=== PATIENT | male | born 1955 | race Caucasian/White ===

== ENCOUNTER → 2016-12-21 | Outpatient (CLI) | payer BC ==
--- NOTE | 2016-12-21 16:57 | CR ---
EXAMINATION: Pelvis and left hip HISTORY: Pain COMPARISON: 12/07/2016 TECHNIQUE: AP pelvis and 2 views of the left hip FINDINGS: There is no acute osseous abnormality, dislocation, or fracture identified. The left hip j oint appears normal. There is increased sclerosis at the left SI joint, the right SI joint appears n ormal. Bone mineralization otherwise appears normal. IMPRESSION: 1. Mild asymmetric left sacroiliitis. 2. Unremarkable left hip.
== END ==
LOC: MW.CHORTHO 07:51
PROVIDERS: ATTEND Orthopaedic Surgery
DX: M25.552 Pain in left hip (principal); M46.1 Sacroiliitis, not elsewhere classified
CPT/HCPCS: 73502-26-LT; 73502-LT

== ENCOUNTER → 2016-12-24 | Outpatient (CLI) | payer BC ==
[~2016-12-24] MED LIST: Iopamidol 755 MG/ML 500 ML Multipack Bottle IVPUSH STA
--- NOTE | 2017-01-12 08:48 | CT ---
EXAMINATION: CT soft tissue neck with and without contrast HISTORY: Lump COMPARISON: 06/14/2010 TECHNIQUE: Axial CT images obtained through the neck before and following the administration of 7 4- mL of Isovue-370 in the left antecubital fossa. Coronal and sagittal reconstructions obtained. FINDINGS: The nasopharyngeal and oropharyngeal mucosal structures are symmetric. The hypopharynx is normal. No bulky cervical lymphadenopathy. The parotid and submandibular glands appear normal. The t hyroid gland appears normal. There is no abnormal mass noted within the region of concern. There is asymmetric prominence of the right jugular brain and sternocleidomastoid within the region of concer n, possibly resulting in the palpable finding. The lung apices are clear. The visualized intracrania l compartments appear normal. Mild degenerative changes are noted within the cervical spine. IMPRESSION: 1. No abnormal mass noted within the region of concern.
== END ==
LOC: MW.DI 10:17
PROVIDERS: ATTEND Surgery
DX: R22.1 Localized swelling, mass and lump, neck (principal)
CPT/HCPCS: 70492; Q9967

== ENCOUNTER → 2017-01-06 | Outpatient (CLI) | payer BC ==
--- NOTE | 2017-01-07 19:16 | US ---
EXAMINATION: Carotid US with bob scale and duplex imaging. HISTORY: TIA FINDINGS: Ultrasound examination of bilateral cervical carotid arteries was performed using bob scale and dup sangeeta imaging. No significant atheromatous plaque identified within the carotid arteries. Antegrade flow is noted within the vertebrals. These are the peak velocities in cm per second (systole), right and left respectively, by a comma: CCA (common carotid artery) - 69, 95 ICA (internal carotid artery) - 64, 52 ECA (External carotid artery) - 82, 70 ICA/CCA systolic ratio Right - 1 Left - 1.1 IMPRESSION: No significant atheromatous plaque identified or elevated velocities noted within the carotid arteri es bilaterally.
--- NOTE | 2017-01-11 19:51 | ECHO ---
The echocardiogram report can be seen in this patient's EMR in the Reports section. UVALDO
== END ==
LOC: MW.US 13:12
PROVIDERS: ATTEND Family Medicine
DX: Z86.73 Personal history of transient ischemic attack (TIA), and cerebral infarction without residual deficits (principal)
CPT/HCPCS: 93306; 93880; 93880-26

== ENCOUNTER 2018-03-23 10:24 | Day surgery (SDC) | payer MEDICARE, BC ==
[~2018-03-23 10:24] MED LIST changes: -Iopamidol 755 MG/ML 500 ML Multipack Bottle IVPUSH STA; +Lactated Ringers 1,000 ML IV SCH; +Lidocaine 2% 5 ML SDV ONE; +Propofol 200 MG/20 ML SDV ONE; +Sodium Chloride 0.9% 10 ML Syringe FLUSH PRN; +Sodium Chloride 0.9% 2.5 ML Syringe FLUSH PRN; +fentaNYL 100 MCG/2 ML SDV ONE
[2018-03-23] MEDS ORDERED: Midazolam 1 MG/ML 2 ML SDV ONE (11:35)
--- NOTE | 2018-03-23 11:47 | PCM.PREANE ---
Preanesthetic Assessment - Anesthesia/Transfusion/Family Hx Anesthesia History: Prior Anesthesia Without Reaction Family History of Anesthesia Reaction: No Transfusion History: No Prior Transfusion(s) Intubation History: Unknown - Review of Systems General: No Symptoms Pulmonary: No Symptoms Cardiovascular: No Symptoms Gastrointestinal: Difficulty Swallowing Neurological: No Symptoms Other: Reports: None - Physical Assessment NPO Status Date: 03/22/18 NPO Status Time: 22:00 O2 Sat by Pulse Oximetry: 96 Respiratory Rate: 18 Vital Signs: Last Vital Signs Temp 36.6 C 03/23/18 11:04 Pulse 81 03/23/18 11:04 Resp 18 03/23/18 11:04 BP 151/89 H 03/23/18 11:04 Pulse Ox 96 03/23/18 11:04 Height: 1.83 m Weight: 143.335 kg ASA Class: 3 Mental Status: Alert & Oriented x3 Airway Class: Mallampati = 3 Dentition: Reports: Normal Dentition, [place](s) (upper front- multiple) Thyro-Mental Finger Breadths: 2 Mouth Opening Finger Breadths: 3 ROM/Head Extension: Full Lungs: Clear to Auscultation, Normal Respiratory Effort Cardiovascular: Regular Rate, Regular Rhythm - Allergies Allergies/Adverse Reactions: Allergies Allergy/AdvReac Type Severity Reaction Status Date / Time No Known Allergies Allergy Verified 03/17/18 12:13 - Blood Blood Available: No - Anesthesia Plan Pre-Op Medication Ordered: None - Acknowledgements Anesthesia Type Planned: MAC Pt an Appropriate Candidate for the Planned Anesthesia: Yes Alternatives and Risks of Anesthesia Discussed w Pt/Guardian: Yes Pt/Guardian Understands and Agrees with Anesthesia Plan: Yes PreAnesthesia Questionnaire HEENT History: Reports: None Cardiovascular History: Reports: High Cholesterol, Hypertension Respiratory History: Reports: Sleep Apnea, SOB (some SOB after walking 2 blocks or 2 flights of stairs) Other Respiratory History: uses CPAP Gastrointestinal History: Reports: GERD Genitourinary History: Reports: None Musculoskeletal History: Reports: Fracture, Osteoarthritis, Other (See Below) ( chronic pain) Other Musculoskeletal History: hx diana ankle fx and fx collarbone Neurological History: Reports: Concussion, Neuropathy, Peripheral, TIA ( multiple "mini stroke" with disorientation, dizziness and droopy face- last one couple of weeks ago) Psychiatric History: Reports: Anxiety, Depression Endocrine/Metabolic History: Reports: Obesity/BMI 30+, Other (See Below) ( abnormal sugar levels) Dermatologic History: Reports: None - Past Surgical History Head Surgeries/Procedures: Reports: None GI Surgical History: Reports: Cholecystectomy, EGD, Hernia, Inguinal Other GI Surgeries/Procedures: dyphagia Musculoskeletal Surgical History: Reports: Shoulder Surgery Other Musculoskeletal Surgeries/Procedures:: ORIF rt ankle fx Dermatological Surgical History: Reports: Skin Biopsy - SUBSTANCE USE Smoking Status *Q: Former Smoker Recreational Drug Use History: No - HOME MEDS Home Medications: Home Meds Acetaminophen with Codeine [Acetaminophen-Cod #3] 1 tab PO ASDIRECTED PRN [History] Aspirin 326 mg PO DAILY 03/17/18 [History] Clopidogrel Bisulfate [Plavix] 75 mg PO DAILY 03/17/18 [History] Cyclobenzaprine HCl 1 tab PO ASDIRECTED PRN 03/17/18 [History] DULoxetine [Cymbalta] 2 tab PO DAILY 03/17/18 [History] Diclofenac Sodium [Voltaren] 75 mg PO BID 03/17/18 [History] Gabapentin [Neurontin] 600 mg PO BID 03/17/18 [History] Lidocaine 5% [Lidoderm 5%] 1 patch TRDERM ASDIRECTED PRN 03/17/18 [History] Lisinopril 20 mg PO DAILY 03/17/18 [History] Omeprazole 20 mg PO DAILY 03/17/18 [History] Sildenafil Citrate [Sildenafil] 3 - 5 tab PO ASDIRECTED PRN 03/17/18 [History] Temazepam 15 mg PO BEDTIME PRN 03/17/18 [History] Terbinafine HCl 250 mg PO DAILY 03/17/18 [History] amLODIPine Besylate [Amlodipine Besylate] 5 mg PO DAILY 03/17/18 [History] atorvaSTATin Calcium [Atorvastatin Calcium] 10 mg PO DAILY 03/17/18 [History] - CURRENT (IN HOUSE) MEDS Current Meds: Current Medications Lactated Ringer's (Ringers, Lactated) 1,000 mls @ 125 mls/hr IV ASDIRECTED LEONEL Last Admin: 03/23/18 10:38 Dose: 125 mls/hr Sodium Chloride (Saline Flush) 10 ml FLUSH ASDIRECTED PRN PRN Reason: Keep Vein Open Sodium Chloride (Saline Flush) 2.5 ml FLUSH ASDIRECTED PRN PRN Reason: Keep Vein Open Sodium Chloride (Saline Flush) 10 ml FLUSH ASDIRECTED PRN PRN Reason: Keep Vein Open Sodium Chloride (Saline Flush) 2.5 ml FLUSH ASDIRECTED PRN PRN Reason: Keep Vein Open Discontinued Medications Fentanyl (Sublimaze) Confirm Administered Dose 100 mcg .ROUTE .STK-MED ONE Stop: 03/23/18 09:30 Lidocaine (Xylocaine-Mpf 2%) Confirm Administered Dose 5 ml .ROUTE .STK-MED ONE Stop: 03/23/18 09:30 Midazolam HCl (Versed 1 Mg/Ml) Confirm Administered Dose 2 mg .ROUTE .STK-MED ONE Stop: 03/23/18 11:36 Propofol (Diprivan 20 Ml) Confirm Administered Dose 400 mg .ROUTE .STK-MED ONE Stop: 03/23/18 09:30
--- NOTE | 2018-03-23 12:39 | PCM.OPNOTE ---
- General Post-Op/Procedure Note Date of Surgery/Procedure: 03/23/18 Operative Procedure(s): Diagnostic EGD and screening colonoscopy Findings: Small hiatal hernia with no narrowing/stricture noted. Diverticulosis Pre Op Diagnosis: Dysphagia Post-Op Diagnosis: Hiatal hernia, diverticulosis Anesthesia Technique: MAC Primary Surgeon: Monica Paris Condition: Good
--- NOTE | 2018-03-23 13:21 | PCM48HPAN ---
Post Anesthesia Note - EVALUATION WITHIN 48HRS OF ANESTHETIC Vital Signs in Normal Range: Yes Patient Participated in Evaluation: Yes Respiratory Function Stable: Yes Airway Patent: Yes Cardiovascular Function Stable: Yes Hydration Status Stable: Yes Pain Control Satisfactory: Yes Nausea and Vomiting Control Satisfactory: Yes Mental Status Recovered: Yes Resp Rate: 11 - COMMENTS/OBSERVATIONS Free Text/Narrative:: no anesthesia problems
[2018-03-23 14:15] VITALS: BP 121/59
--- NOTE | 2018-03-24 00:19 | OR ---
SURGEON: TARA OLIVAS MD DATE OF PROCEDURE: 03/23/2018 PREOPERATIVE DIAGNOSES: 1. Dysphagia. 2. Screening colonoscopy. POSTOPERATIVE DIAGNOSES: 1. Hiatal hernia. 2. Diverticulosis. PROCEDURE PERFORMED: Diagnostic EGD and screening colonoscopy. INSTRUMENT USED: Olympus endoscope and colonoscope. EXTENT OF EXAM: To the second portion of the duodenum and to the cecum. PREPARATION: Good. LIMITATIONS: None. INDICATION FOR EXAMINATION: The patient is a 62-year-old male who presents with progressive dysphagia. He has also never had a colonoscopy. We discussed the need for diagnostic EGD and a screening colonoscopy. The patient had a preoperative esophagram that showed a small hiatal hernia with a small ring. I consented the patient for diagnostic EGD with possible dilation if it appeared that he did have a stricture in the distal esophagus. I also consented him for a screening colonoscopy. We talked about both procedures as well as expected perioperative course. We discussed the risks including bleeding, infection, or damage to surrounding structures including perforation. The patient verbalized understanding and wishes to proceed. PROCEDURE IN DETAIL: The patient was brought into the endoscopy suite and placed in the left lateral decubitus position. A time-out was completed verifying the patient's name, age, date of , allergies, and procedure to be performed. Monitored anesthesia care was induced, and a bite block was placed in the patient's mouth. Continuous oxygen was provided via nasal cannula throughout the procedure. After adequate sedation was achieved, a well-lubricated endoscope was placed in the patient's mouth and advanced under direct visualization to the level of the second portion of duodenum. This appeared normal, and a photograph was taken. The scope was then fully withdrawn while examining the color, texture, anatomy, and integrity of the mucosa of the upper GI tract. The duodenum appeared normal. The scope was then brought into the stomach. The gastric mucosa was free of ulcers or any signs of inflammation. A photograph was taken of the pylorus and GE junction. The patient was noted to have a small hiatal hernia. Biopsies were taken of the gastric antrum, body, and fundus and sent for H. pylori testing and histologic review. The scope was then brought into the distal esophagus. The patient was noted to have a small hiatal hernia, but there was no evidence of stricture. The GE junction was widely patent. Given this, the decision was made to not attempt any dilation. The remainder of the esophageal mucosa appeared normal. The scope was removed, and this portion of procedure was terminated. A digital rectal exam was performed. This exam was within normal limits. A well-lubricated colonoscope was inserted in the rectum and advanced under direct visualization to the level of the cecum. The cecum was identified by both visual and anatomic landmarks. A photograph was taken of the cecal cap. The scope was then fully withdrawn while examining the color, texture, anatomy, and integrity of the mucosa from the cecum to the anal canal. The patient was noted to have diverticulosis. The scope was then brought in the rectum and retroflexed to allow visualization of the anal canal opening. This appeared normal, and a photograph was taken. The scope was then straightened out and fully withdrawn. The cecum to anus time was 9 minutes. The patient tolerated both procedures well and was transferred to the PACU in stable condition. ENDOSCOPIC DIAGNOSES: 1. Hiatal hernia. 2. Diverticulosis. RECOMMENDATIONS: We will refer the patient on to a die out worker for further dysphagia workup. We will see the patient in clinic in 2 weeks to discuss this as well as his diverticulosis diagnosis. LEONARD NORIEGA /[id number]
== END 2018-03-23 13:23 | disposition home or self-care (01) ==
LOC: MW.SDS 10:24
PROVIDERS: ATTEND Surgery
DX: K21.9 Gastro-esophageal reflux disease without esophagitis (principal); K62.5 Hemorrhage of anus and rectum; R13.10 Dysphagia, unspecified; K57.30 Diverticulosis of large intestine without perforation or abscess without bleeding; K44.9 Diaphragmatic hernia without obstruction or gangrene; M19.019 Primary osteoarthritis, unspecified shoulder; J44.9 Chronic obstructive pulmonary disease, unspecified; J30.9 Allergic rhinitis, unspecified; M19.90 Unspecified osteoarthritis, unspecified site; I10 Essential (primary) hypertension; F32.1 Major depressive disorder, single episode, moderate; F41.9 Anxiety disorder, unspecified; E78.5 Hyperlipidemia, unspecified; E78.00 Pure hypercholesterolemia, unspecified; E66.9 Obesity, unspecified; G47.30 Sleep apnea, unspecified; Z99.89 Dependence on other enabling machines and devices; Z79.82 Long term (current) use of aspirin; Z79.899 Other long term (current) drug therapy
CPT/HCPCS: 43239; 45378; J2250; J3010; J7120; 88305; 88312; J2704

== ENCOUNTER 2019-01-04 09:20 | Day surgery (SDC) | payer MEDICARE ==
[2019-01-04] MEDS ORDERED: Betamethasone Acetate/Betamethasone Sod Phosphate 30 MG/5 ML MDV ONE (12:23)
[2019-01-04] MEDS ORDERED: Iopamidol 408 MG/ML 50 ML SDV ONE (12:23)
[2019-01-04] MEDS ORDERED: Ropivacaine 0.5% 5 MG/ML 30 ML SDV ONE (12:23)
[2019-01-04] MEDS ORDERED: Lidocaine 2% 5 ML SDV ONE (12:23)
--- NOTE | 2019-01-04 18:13 | OR ---
SURGEON: Michelle Pope D.O. DATE OF PROCEDURE: 01/04/2019 OR STAFF PRESENT: 1. Alanna Vyas RN. 2. Shola Crenshaw RN. 3. RT [place]. WOUND CLASS: I. PREOPERATIVE DIAGNOSES: 1. Lumbar herniated disk. 2. Lumbar degenerative disk disease, L3-4, L4-5, L5-S1. 3. Lumbar radiculopathy. 4. Lumbar spinal stenosis. 5. Lumbar neural foraminal stenosis. POSTOPERATIVE DIAGNOSES: 1. Lumbar herniated disk. 2. Lumbar degenerative disk disease, L3-4, L4-5, L5-S1. 3. Lumbar radiculopathy. 4. Lumbar spinal stenosis. 5. Lumbar neural foraminal stenosis. PROCEDURES PERFORMED: 1. Caudal epidural steroid injection. 2. Fluoroscopic guidance for needle placement. 3. Local with oral Valium for sedation. SCREENING QUESTIONS: The patient answered "no" to all of the following questions: 1. Are you allergic to latex? 2. Do you have a bleeding disorder? 3. Do you have any current local or systemic infections? 4. Are you taking any anti-inflammatories or blood thinners? 5. Do you have any joint replacements, heart valve replacements, or a pacemaker? DESCRIPTION OF PROCEDURE: The patient had the procedure thoroughly explained including all possible risks, benefits and alternatives. Consent was signed in my clinic indicating understanding and willingness to proceed. The patient presented to [facility] and was escorted to the dressing room to disrobe and change into a hospital gown. Preoperative vital signs were taken and stable. The patient reported that Valium was taken prior to the procedure. The patient was brought back to the procedure room and placed in the prone position on the procedure room table. A pillow was placed under the hips in order to flatten the lumbar lordosis. The back was prepped with ChloraPrep and sterilely draped. All personnel in the operating room were dressed in appropriate attire including surgical scrubs, head and shoe covers. This was to ensure sterility while in the treatment room. During the time fluoroscopy was in use, all personnel in the operating room wore lead dorsey with thyroid collars. Sterile technique was used throughout the procedure. The patient was awake and conversant throughout the procedure. There was no evidence of infection at the site of needle insertion. Skeletal landmarks were identified under fluoroscopy for the caudal epidural. Skin was anesthetized with 2% lidocaine with a sterile 27-gauge 1.5 inch needle. Then, a 20-gauge Tuohy epidural needle was placed in the epidural space with loss of resistance technique under fluoroscopic guidance. No heme, cerebrospinal fluid, or paresthesias were noted. Isovue-200 contrast dye was injected in 0.2 cubic centimeter increments and seen to outline the epidural space in both AP and lateral views. There was no intravascular flow pattern observed under live fluoroscopy. Then, 12 milligrams of Celestone was slowly injected after negative aspiration. The patient tolerated the procedure well. Vital signs were stable during and after the procedure. The staff escorted the patient to the recovery area and the patient was released in stable condition after a brief stay in the recovery room monitored by the nurse. The patient was given both oral and written discharge and follow up instructions with recommendation to follow up given for 2-3 weeks. The patient voiced understanding including understanding of those signs and symptoms that would require emergency care. The patient knows how to contact the office if there are any additional problems or questions in the meantime. PREOPERATIVE PAIN: 8/10. POSTOPERATIVE PAIN: 2/10. FOLLOWUP: Follow up in the pain clinic in 3 weeks. PATRICIA / HARI /[id number] UVALDO
== END 2019-01-04 14:20 | disposition home or self-care (01) ==
LOC: MW.SDS 09:20
PROVIDERS: ATTEND Anesthesiology
DX: M51.16 Intervertebral disc disorders with radiculopathy, lumbar region (principal); M51.17 Intervertebral disc disorders with radiculopathy, lumbosacral region; M48.062 Spinal stenosis, lumbar region with neurogenic claudication; M79.18 Myalgia, other site; I10 Essential (primary) hypertension; E78.5 Hyperlipidemia, unspecified; K21.9 Gastro-esophageal reflux disease without esophagitis; J44.9 Chronic obstructive pulmonary disease, unspecified; M19.012 Primary osteoarthritis, left shoulder; M19.011 Primary osteoarthritis, right shoulder; F32.9 Major depressive disorder, single episode, unspecified; F41.9 Anxiety disorder, unspecified; E66.01 Morbid (severe) obesity due to excess calories; Z68.41 Body mass index [BMI] 40.0-44.9, adult; Z79.82 Long term (current) use of aspirin; Z79.02 Long term (current) use of antithrombotics/antiplatelets; Z79.899 Other long term (current) drug therapy
CPT/HCPCS: 36415; 62323; 85025; 85610; 85730; J0702; J2795; Q9966; J2001

== ENCOUNTER 2019-11-30 14:45 | Observation (INO) | payer MEDICARE ==
[2019-11-30] MEDS ORDERED: Sodium Chloride 0.9% 1,000 ML IV ONE ×3 (14:51→17:44)
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
[2019-11-30 15:39] LABS: BLOOD UREA NITROGEN,BUN 21 mg/dL (7.0-18.0); CHLORIDE,CL 104 mmol/L (98-107); GLUCOSE RANDOM 122 mg/dL (74-106); POTASSIUM,K 4.2 mmol/L (3.5-5.1); SODIUM,NA 139 mmol/L (136-148)
[2019-11-30] MEDS: Sodium Chloride 0.9% 1,000 ML IV SCH ×2 (16:54→19:29)
--- NOTE | 2019-11-30 16:56 | CT ---
Is the descending head CT Technique: Multiple axial sections through the brain were obtained. Intravenous contrast was not utilized. Comparison: No prior intracranial imaging. Findings: Ventricles along with basal cisterns and sulci over the convexities are within normal limits for the patient's age. Mild diminished density is noted within the periventricular white matter. No other abnormal parenchymal densities are seen. No evidence of intracranial hemorrhage. No midline shift or mass-effect is seen. Bone window settings were reviewed which shows minimal areas of mucosal thickening within the ethmoid is maxillary sinuses which are most likely chronic. Mastoid sinuses are clear. No acute calvarial abnormality is seen. Impression: 1. Minimal sinus findings believed to be chronic. 2. Small vessel ischemic demyelination change is present. 3. Nothing acute is appreciated on noncontrast head CT study. Diagnostic code #2 This report was dictated in [place] Standard Time
--- NOTE | 2019-11-30 16:56 | CR ---
Chest: AP view of the chest was obtained. Comparison: Prior chest x-ray of 02/05/14. Heart size is normal. Tortuous thoracic aorta is seen. Lungs show no acute parenchymal change. Bony structures are grossly intact. Impression: 1. Nothing acute is seen on AP chest x-ray. Diagnostic code #1 This report was dictated in [place] Standard Time
--- NOTE | 2019-11-30 17:25 | PCM.HP.2 ---
<Leida Graham - Last Filed: 11/30/19 17:40> H&P History of Present Illness - General Date of Service: 11/30/19 Admit Problem/Dx: Admission Diagnosis/Problem Admission Diagnosis/Problem Syncope - History of Present Illness Initial Comments - Free Text/Narative: The patient is a 64 year old male with past medical hx of HTN, hyperlipidemia, TIA, neuropathy, and chronic back pain. The patient was at his son's school discussing an issue with the principal and park police when he felt dizzy and then passed out. States son eased him down to ground, no head trauma or injury to any other part of the body. Thinks he was out for a few seconds. Denies fever/chills, sinus congestion, sore throat chest pain, shortness of breath, cough, nausea/vomiting, constipation/diarrhea, burning with urination. Took his amlodipine this morning and thinks he may have taken a double dose of his pain medication, Tylenol #3. Has not eaten anything all day, was fasting for PCP lab work. Since doing blood work this AM, has had 2 bottles of water and 2 diet cokes. In the ER, leukocytosis of 16, no anemia, lactate wnl, CMP wnl, trop negative, influenza negative. Blood cultures and UA pending. CXR negative for acute process. CT head negative for acute process. EKG showed NSR without ST changes with HR 80s. Upon arrival BP 81/55, after 2 L bolus and fluids running at 150 cc/hr, currently at 98/63. PCP- Dr. Lorenzo - Related Data Allergies/Adverse Reactions: Allergies Allergy/AdvReac Type Severity Reaction Status Date / Time No Known Allergies Allergy Verified 11/30/19 19:45 Home Medications: Home Meds Acetaminophen with Codeine [Tylenol with Codeine #4 Tablet] 1 each PO .Q4-6H PRN 11/30/19 [History] Baclofen 1 - 2 tab PO TID PRN 11/30/19 [History] Clopidogrel [Plavix] 75 mg PO DAILY 11/30/19 [History] Cyanocobalamin/FA/Pyridoxine [Folbic] 1 tab PO BID 11/30/19 [History] Cyclobenzaprine [Flexeril] 10 mg PO Q8HR PRN 11/30/19 [History] DULoxetine [Cymbalta] 120 mg PO DAILY 11/30/19 [History] Diclofenac Sodium [Voltaren 1% Gel] 1 dose TOP DAILY 11/30/19 [History] Diclofenac Sodium [Voltaren] 75 mg PO BIDPC 11/30/19 [History] Gabapentin [Neurontin] 300 mg PO BID 11/30/19 [History] Gabapentin [Neurontin] 600 mg PO BID 11/30/19 [History] Ketamine Hcl [Ketamine Nasal [place] Compound] 1 spray NASBOTH TID PRN 11/30/19 [ History] Lidocaine 0.5% [Xylocaine-MPF 0.5%] 1 dose TOP TID PRN 11/30/19 [History] Lisinopril [Zestril] 20 mg PO DAILY 11/30/19 [History] Sildenafil [Revatio] 60 - 100 mg PO DAILY 11/30/19 [History] amLODIPine [Norvasc] 10 mg PO DAILY 11/30/19 [History] atorvaSTATin [Lipitor] 10 mg PO BEDTIME 11/30/19 [History] Past Medical History HEENT History: Reports: None Cardiovascular History: Reports: High Cholesterol, Hypertension Respiratory History: Reports: Sleep Apnea, SOB (some SOB after walking 2 blocks or 2 flights of stairs) Other Respiratory History: uses CPAP Gastrointestinal History: Reports: GERD Genitourinary History: Reports: None Musculoskeletal History: Reports: Fracture, Osteoarthritis, Other (See Below) ( chronic pain) Other Musculoskeletal History: hx diana ankle fx and fx collarbone Neurological History: Reports: Concussion, Neuropathy, Peripheral, TIA ( multiple "mini stroke" with disorientation, dizziness and droopy face- last one couple of weeks ago) Psychiatric History: Reports: Anxiety, Depression Endocrine/Metabolic History: Reports: Obesity/BMI 30+, Other (See Below) ( abnormal sugar levels) Hematologic History: Reports: None Immunologic History: Reports: None Oncologic (Cancer) History: Reports: None Dermatologic History: Reports: None - Infectious Disease History Infectious Disease History: Reports: Chicken Pox, Measles, Mumps - Past Surgical History Head Surgeries/Procedures: Reports: None GI Surgical History: Reports: Cholecystectomy, EGD, Hernia, Inguinal Other GI Surgeries/Procedures: dyphagia Musculoskeletal Surgical History: Reports: Shoulder Surgery Other Musculoskeletal Surgeries/Procedures:: ORIF rt ankle fx Dermatological Surgical History: Reports: Skin Biopsy Social & Family History - Family History Family Medical History: Noncontributory - Tobacco Use Smoking Status *Q: Never Smoker Second Hand Smoke Exposure: No - Caffeine Use Caffeine Use: Reports: Soda - Recreational Drug Use Recreational Drug Use: No Recreational Drug Type: Reports: Marijuana/Hashish (medical) H&P Review of Systems - Review of Systems: Review Of Systems: See Below General: Reports: No Symptoms HEENT: Reports: No Symptoms Pulmonary: Reports: No Symptoms Cardiovascular: Reports: Syncope, Blood Pressure Problem. Denies: Chest Pain Gastrointestinal: Reports: No Symptoms Genitourinary: Reports: No Symptoms Musculoskeletal: Reports: Back Pain (chronic) Skin: Reports: No Symptoms Psychiatric: Reports: No Symptoms Neurological: Reports: Dizziness, Syncope. Denies: Headache Hematologic/Lymphatic: Reports: No Symptoms Immunologic: Reports: No Symptoms Exam - Exam Exam: See Below - Vital Signs Vital Signs: Last Vital Signs Temp 96.0 F 11/30/19 14:52 Pulse 68 11/30/19 16:45 Resp 17 11/30/19 16:45 BP 98/63 11/30/19 16:45 Pulse Ox 97 11/30/19 16:45 Weight: 120.202 kg - Exam General: Alert, Oriented, Cooperative HEENT: Conjunctiva Clear, EOMI, Mucosa Moist & [place], Posterior Pharynx Clear, Pupils Equal, Pupils Reactive Neck: Supple Lungs: Clear to Auscultation, Normal Respiratory Effort Cardiovascular: Regular Rate, Regular Rhythm GI/Abdominal Exam: Normal Bowel Sounds, Soft, Tender (LLQ) Extremities: Pedal Edema Skin: Warm, Dry, Intact Neuro Extensive - Mental Status: Alert, Oriented x3 Psychiatric: Alert, Normal Affect, Normal Mood - Patient Data Lab Results Last 24 hrs: Laboratory Results - last 24 hr 11/30/19 11/30/19 11/30/19 Range/Units 15:03 15:03 15:03 WBC 16.07 H (4.0-11.0) K/uL RBC 5.29 (4.50-5.90) M/uL Hgb 15.7 (13.0-17.0) g/dL Hct 46.7 (38.0-50.0) % MCV 88.3 (80.0-98.0) fL MCH 29.7 (27.0-32.0) pg MCHC 33.6 (31.0-37.0) g/dL RDW Std Deviation 45.0 (28.0-62.0) fl RDW Coeff of Rober 14 (11.0-15.0) % Plt Count 270 (150-400) K/uL MPV 12.50 H (7.40-12.00) fL Neut % (Auto) 77.4 (48.0-80.0) % Lymph % (Auto) 13.3 L (16.0-40.0) % Fisher % (Auto) 6.7 (0.0-15.0) % Eos % (Auto) 2.4 (0.0-7.0) % Baso % (Auto) 0.2 (0.0-1.5) % Neut # (Auto) 12.5 H (1.4-5.7) K/uL Lymph # (Auto) 2.1 (0.6-2.4) K/uL Fisher # (Auto) 1.1 H (0.0-0.8) K/uL Eos # (Auto) 0.4 (0.0-0.7) K/uL Baso # (Auto) 0.0 (0.0-0.1) K/uL Nucleated RBC % 0.0 /100WBC Nucleated RBCs # 0 K/uL INR 0.98 Lactate (0.20-2.00) mmol/L Sodium 139 (136-148) mmol/L Potassium 4.2 (3.5-5.1) mmol/L Chloride 104 (98-107) mmol/L Carbon Dioxide 24.0 (21.0-32.0) mmol/L BUN 21 H (7.0-18.0) mg/dL Creatinine 1.2 (0.8-1.3) mg/dL Est Cr Clr Drug Dosing 68.26 mL/min Estimated GFR (MDRD) > 60.0 ml/min Glucose 122 H (74-106) mg/dL Calcium 8.6 (8.5-10.1) mg/dL Total Bilirubin 0.7 (0.2-1.0) mg/dL AST 31 (15-37) IU/L ALT 32 (14-63) IU/L Alkaline Phosphatase 92 (46-116) U/L Troponin I < 0.050 (0.000-0.056) ng/mL Total Protein 6.5 (6.4-8.2) g/dL Albumin 3.7 (3.4-5.0) g/dL Globulin 2.8 (2.6-4.0) g/dL Albumin/Globulin Ratio 1.3 (0.9-1.6) 11/30/19 Range/Units 15:03 WBC (4.0-11.0) K/uL RBC (4.50-5.90) M/uL Hgb (13.0-17.0) g/dL Hct (38.0-50.0) % MCV (80.0-98.0) fL MCH (27.0-32.0) pg MCHC (31.0-37.0) g/dL RDW Std Deviation (28.0-62.0) fl RDW Coeff of Rober (11.0-15.0) % Plt Count (150-400) K/uL MPV (7.40-12.00) fL Neut % (Auto) (48.0-80.0) % Lymph % (Auto) (16.0-40.0) % Fisher % (Auto) (0.0-15.0) % Eos % (Auto) (0.0-7.0) % Baso % (Auto) (0.0-1.5) % Neut # (Auto) (1.4-5.7) K/uL Lymph # (Auto) (0.6-2.4) K/uL Fisher # (Auto) (0.0-0.8) K/uL Eos # (Auto) (0.0-0.7) K/uL Baso # (Auto) (0.0-0.1) K/uL Nucleated RBC % /100WBC Nucleated RBCs # K/uL INR Lactate 1.6 (0.20-2.00) mmol/L Sodium (136-148) mmol/L Potassium (3.5-5.1) mmol/L Chloride (98-107) mmol/L Carbon Dioxide (21.0-32.0) mmol/L BUN (7.0-18.0) mg/dL Creatinine (0.8-1.3) mg/dL Est Cr Clr Drug Dosing mL/min Estimated GFR (MDRD) ml/min Glucose (74-106) mg/dL Calcium (8.5-10.1) mg/dL Total Bilirubin (0.2-1.0) mg/dL AST (15-37) IU/L ALT (14-63) IU/L Alkaline Phosphatase (46-116) U/L Troponin I (0.000-0.056) ng/mL Total Protein (6.4-8.2) g/dL Albumin (3.4-5.0) g/dL Globulin (2.6-4.0) g/dL Albumin/Globulin Ratio (0.9-1.6) Result Diagrams: 11/30/19 15:03 11/30/19 15:03 Jamin Results Last 24 hrs: Microbiology 11/30/19 15:12 Influenza Type A Antigen Screen - Final Nasopharyngeal Swab NEGATIVE INFLUENZA A VIRUS AG REFERENCE RANGE: NEGATIVE Influenza Type B Antigen Screen - Final NEGATIVE INFLUENZA B VIRUS AG REFERENCE RANGE: NEGATIVE Sepsis Event Note - Evaluation Sepsis Screening Result: No Definite Risk - Focused Exam Vital Signs: Vital Signs Temp Pulse Resp BP Pulse Ox 11/30/19 16:45 68 17 98/63 97 11/30/19 16:30 82 17 94/67 96 11/30/19 16:15 70 18 116/68 96 11/30/19 16:00 66 18 110/63 98 11/30/19 15:45 67 16 97/59 L 98 11/30/19 15:30 69 17 103/65 98 11/30/19 15:15 73 18 104/63 97 11/30/19 15:00 72 18 90/60 98 11/30/19 14:52 96.0 F 78 16 81/55 L 100 Date Exam was Performed: 11/30/19 Time Exam was Performed: 17:40 Problem List Initiated/Reviewed/Updated: Yes Orders Last 24hrs: Active Orders 24 hr Category Date Time Status Admission Status [Patient Status] [ADT] Stat ADT 11/30/19 17:04 Active EKG Documentation Completion [RC] STAT Care 11/30/19 14:52 Active CULTURE BLOOD [BC] Stat Lab 11/30/19 15:10 Received CULTURE BLOOD [BC] Stat Lab 11/30/19 15:22 Received UA RFX JAMIN AND CULT IF INDIC [URIN] Stat Lab 11/30/19 14:51 Ordered Sodium Chloride 0.9% [Normal Saline] 1,000 ml Med 11/30/19 17:00 Active IV ASDIRECTED Blood Culture x2 Reflex Set [OM.PC] Stat Oth 11/30/19 14:52 Ordered Medication Orders Sodium Chloride (Normal Saline) 1,000 mls @ 150 mls/hr IV ASDIRECTED LEONEL Last Admin: 11/30/19 16:54 Dose: 150 mls/hr Assessment/Plan Comment:: 1. Admit for observation 2. Code status- Full 3. Vitals per routine 4. I/Os strict 5. Diet-regular 6. DVT with lovenox 7. Syncope likely secondary to hypotension- will monitor on telemetry, obtain orthostatic vitals, continue IVF with 1 additional bolus, hold BP meds, obtain UDS, will trend trop 8. Leukocytosis- UA and BC pending, patient has abdominal pain on exam- will obtain CT ab/pelvis <Jacques Luna - Last Filed: 12/01/19 14:09> H&P History of Present Illness - General Admit Problem/Dx: Admission Diagnosis/Problem Admission Diagnosis/Problem Syncope Exam - Vital Signs Vital Signs: Last Vital Signs Temp 36.9 C 12/01/19 12:00 Pulse 70 11/30/19 18:00 Resp 12 12/01/19 09:00 BP 131/75 12/01/19 12:00 Pulse Ox 95 12/01/19 09:00 Orthostatic Blood Pressure [ 131/71 Standing] Orthostatic Blood Pressure [ 140/94 Sitting] Orthostatic Blood Pressure [ 132/74 Supine] - Patient Data Lab Results Last 24 hrs: Laboratory Results - last 24 hr 11/30/19 11/30/19 11/30/19 Range/Units 15:03 15:03 15:03 WBC 16.07 H (4.0-11.0) K/uL RBC 5.29 (4.50-5.90) M/uL Hgb 15.7 (13.0-17.0) g/dL Hct 46.7 (38.0-50.0) % MCV 88.3 (80.0-98.0) fL MCH 29.7 (27.0-32.0) pg MCHC 33.6 (31.0-37.0) g/dL RDW Std Deviation 45.0 (28.0-62.0) fl RDW Coeff of Rober 14 (11.0-15.0) % Plt Count 270 (150-400) K/uL MPV 12.50 H (7.40-12.00) fL Neut % (Auto) 77.4 (48.0-80.0) % Lymph % (Auto) 13.3 L (16.0-40.0) % Fisher % (Auto) 6.7 (0.0-15.0) % Eos % (Auto) 2.4 (0.0-7.0) % Baso % (Auto) 0.2 (0.0-1.5) % Neut # (Auto) 12.5 H (1.4-5.7) K/uL Lymph # (Auto) 2.1 (0.6-2.4) K/uL Fisher # (Auto) 1.1 H (0.0-0.8) K/uL Eos # (Auto) 0.4 (0.0-0.7) K/uL Baso # (Auto) 0.0 (0.0-0.1) K/uL Nucleated RBC % 0.0 /100WBC Nucleated RBCs # 0 K/uL INR 0.98 Lactate (0.20-2.00) mmol/L Sodium 139 (136-148) mmol/L Potassium 4.2 (3.5-5.1) mmol/L Chloride 104 (98-107) mmol/L Carbon Dioxide 24.0 (21.0-32.0) mmol/L BUN 21 H (7.0-18.0) mg/dL Creatinine 1.2 (0.8-1.3) mg/dL Est Cr Clr Drug Dosing 68.26 mL/min Estimated GFR (MDRD) > 60.0 ml/min Glucose 122 H (74-106) mg/dL Calcium 8.6 (8.5-10.1) mg/dL Phosphorus (2.6-4.7) mg/dL Magnesium (1.8-2.4) mg/dL Total Bilirubin 0.7 (0.2-1.0) mg/dL AST 31 (15-37) IU/L ALT 32 (14-63) IU/L Alkaline Phosphatase 92 (46-116) U/L Troponin I < 0.050 (0.000-0.056) ng/mL Total Protein 6.5 (6.4-8.2) g/dL Albumin 3.7 (3.4-5.0) g/dL Globulin 2.8 (2.6-4.0) g/dL Albumin/Globulin Ratio 1.3 (0.9-1.6) Urine Color Urine Appearance Urine pH (5.0-8.0) Ur Specific [place] (1.001-1.035) Urine Protein (NEGATIVE) mg/dL Urine Glucose (UA) (NEGATIVE) mg/dL Urine Ketones (NEGATIVE) mg/dL Urine Occult Blood (NEGATIVE) Urine Nitrite (NEGATIVE) Urine Bilirubin (NEGATIVE) Urine Urobilinogen (<2.0) EU/dL Ur Leukocyte Esterase (NEGATIVE) Urine Opiates Screen (NEGATIVE) Ur Oxycodone Screen (NEGATIVE) Urine Methadone Screen (NEGATIVE) Ur Barbiturates Screen (NEGATIVE) Ur Phencyclidine Scrn (NEGATIVE) Ur Amphetamine Screen (NEGATIVE) U Methamphetamines Scrn (NEGATIVE) U Benzodiazepines Scrn (NEGATIVE) U Cocaine Metab Screen (NEGATIVE) U Marijuana (THC) Screen (NEGATIVE) 11/30/19 11/30/19 11/30/19 Range/Units 15:03 21:00 21:00 WBC (4.0-11.0) K/uL RBC (4.50-5.90) M/uL Hgb (13.0-17.0) g/dL Hct (38.0-50.0) % MCV (80.0-98.0) fL MCH (27.0-32.0) pg MCHC (31.0-37.0) g/dL RDW Std Deviation (28.0-62.0) fl RDW Coeff of Rober (11.0-15.0) % Plt Count (150-400) K/uL MPV (7.40-12.00) fL Neut % (Auto) (48.0-80.0) % Lymph % (Auto) (16.0-40.0) % Fisher % (Auto) (0.0-15.0) % Eos % (Auto) (0.0-7.0) % Baso % (Auto) (0.0-1.5) % Neut # (Auto) (1.4-5.7) K/uL Lymph # (Auto) (0.6-2.4) K/uL Fisher # (Auto) (0.0-0.8) K/uL Eos # (Auto) (0.0-0.7) K/uL Baso # (Auto) (0.0-0.1) K/uL Nucleated RBC % /100WBC Nucleated RBCs # K/uL INR Lactate 1.6 (0.20-2.00) mmol/L Sodium (136-148) mmol/L Potassium (3.5-5.1) mmol/L Chloride (98-107) mmol/L Carbon Dioxide (21.0-32.0) mmol/L BUN (7.0-18.0) mg/dL Creatinine (0.8-1.3) mg/dL Est Cr Clr Drug Dosing mL/min Estimated GFR (MDRD) ml/min Glucose (74-106) mg/dL Calcium (8.5-10.1) mg/dL Phosphorus (2.6-4.7) mg/dL Magnesium (1.8-2.4) mg/dL Total Bilirubin (0.2-1.0) mg/dL AST (15-37) IU/L ALT (14-63) IU/L Alkaline Phosphatase (46-116) U/L Troponin I (0.000-0.056) ng/mL Total Protein (6.4-8.2) g/dL Albumin (3.4-5.0) g/dL Globulin (2.6-4.0) g/dL Albumin/Globulin Ratio (0.9-1.6) Urine Color YELLOW Urine Appearance CLEAR Urine pH 6.0 (5.0-8.0) Ur Specific [place] 1.010 (1.001-1.035) Urine Protein NEGATIVE (NEGATIVE) mg/dL Urine Glucose (UA) NEGATIVE (NEGATIVE) mg/dL Urine Ketones NEGATIVE (NEGATIVE) mg/dL Urine Occult Blood NEGATIVE (NEGATIVE) Urine Nitrite NEGATIVE (NEGATIVE) Urine Bilirubin NEGATIVE (NEGATIVE) Urine Urobilinogen 0.2 (<2.0) EU/dL Ur Leukocyte Esterase NEGATIVE (NEGATIVE) Urine Opiates Screen POSITIVE (NEGATIVE) Ur Oxycodone Screen POSITIVE (NEGATIVE) Urine Methadone Screen NEGATIVE (NEGATIVE) Ur Barbiturates Screen NEGATIVE (NEGATIVE) Ur Phencyclidine Scrn NEGATIVE (NEGATIVE) Ur Amphetamine Screen NEGATIVE (NEGATIVE) U Methamphetamines Scrn NEGATIVE (NEGATIVE) U Benzodiazepines Scrn NEGATIVE (NEGATIVE) U Cocaine Metab Screen NEGATIVE (NEGATIVE) U Marijuana (THC) Screen POSITIVE (NEGATIVE) 11/30/19 12/01/19 12/01/19 Range/Units 21:05 10:03 10:03 WBC 7.67 (4.0-11.0) K/uL RBC 4.21 L (4.50-5.90) M/uL Hgb 12.6 L (13.0-17.0) g/dL Hct 37.6 L (38.0-50.0) % MCV 89.3 (80.0-98.0) fL MCH 29.9 (27.0-32.0) pg MCHC 33.5 (31.0-37.0) g/dL RDW Std Deviation 45.9 (28.0-62.0) fl RDW Coeff of Rober 14 (11.0-15.0) % Plt Count 204 (150-400) K/uL MPV 11.50 (7.40-12.00) fL Neut % (Auto) 71.3 (48.0-80.0) % Lymph % (Auto) 16.2 (16.0-40.0) % Fisher % (Auto) 6.1 (0.0-15.0) % Eos % (Auto) 6.3 (0.0-7.0) % Baso % (Auto) 0.1 (0.0-1.5) % Neut # (Auto) 5.5 (1.4-5.7) K/uL Lymph # (Auto) 1.2 (0.6-2.4) K/uL Fisher # (Auto) 0.5 (0.0-0.8) K/uL Eos # (Auto) 0.5 (0.0-0.7) K/uL Baso # (Auto) 0.0 (0.0-0.1) K/uL Nucleated RBC % 0.0 /100WBC Nucleated RBCs # 0 K/uL INR Lactate (0.20-2.00) mmol/L Sodium 140 (136-148) mmol/L Potassium 4.1 (3.5-5.1) mmol/L Chloride 108 H (98-107) mmol/L Carbon Dioxide 25.0 (21.0-32.0) mmol/L BUN 13 (7.0-18.0) mg/dL Creatinine 0.7 L (0.8-1.3) mg/dL Est Cr Clr Drug Dosing 117.02 mL/min Estimated GFR (MDRD) > 60.0 ml/min Glucose 103 (74-106) mg/dL Calcium 7.9 L (8.5-10.1) mg/dL Phosphorus 3.5 (2.6-4.7) mg/dL Magnesium 2.0 (1.8-2.4) mg/dL Total Bilirubin (0.2-1.0) mg/dL AST (15-37) IU/L ALT (14-63) IU/L Alkaline Phosphatase (46-116) U/L Troponin I < 0.050 (0.000-0.056) ng/mL Total Protein (6.4-8.2) g/dL Albumin (3.4-5.0) g/dL Globulin (2.6-4.0) g/dL Albumin/Globulin Ratio (0.9-1.6) Urine Color Urine Appearance Urine pH (5.0-8.0) Ur Specific [place] (1.001-1.035) Urine Protein (NEGATIVE) mg/dL Urine Glucose (UA) (NEGATIVE) mg/dL Urine Ketones (NEGATIVE) mg/dL Urine Occult Blood (NEGATIVE) Urine Nitrite (NEGATIVE) Urine Bilirubin (NEGATIVE) Urine Urobilinogen (<2.0) EU/dL Ur Leukocyte Esterase (NEGATIVE) Urine Opiates Screen (NEGATIVE) Ur Oxycodone Screen (NEGATIVE) Urine Methadone Screen (NEGATIVE) Ur Barbiturates Screen (NEGATIVE) Ur Phencyclidine Scrn (NEGATIVE) Ur Amphetamine Screen (NEGATIVE) U Methamphetamines Scrn (NEGATIVE) U Benzodiazepines Scrn (NEGATIVE) U Cocaine Metab Screen (NEGATIVE) U Marijuana (THC) Screen (NEGATIVE) Result Diagrams: 12/01/19 10:03 12/01/19 10:03 Jamin Results Last 24 hrs: Microbiology 11/30/19 15:12 Influenza Type A Antigen Screen - Final Nasopharyngeal Swab NEGATIVE INFLUENZA A VIRUS AG REFERENCE RANGE: NEGATIVE Influenza Type B Antigen Screen - Final NEGATIVE INFLUENZA B VIRUS AG REFERENCE RANGE: NEGATIVE Sepsis Event Note - Focused Exam Vital Signs: Vital Signs Temp Resp BP Pulse Ox 12/01/19 12:00 36.9 C 131/75 12/01/19 09:00 12 114/65 95 12/01/19 08:00 12 102/51 L 98 12/01/19 07:00 12 118/72 96 12/01/19 04:00 36.8 C 14 122/65 93 L 12/01/19 03:00 13 119/71 97 Date Exam was Performed: 12/01/19 Time Exam was Performed: 14:08 - Problem List (1) Enteritis SNOMED Code(s): 69460980 ICD Code: K52.9 - NONINFECTIVE GASTROENTERITIS AND COLITIS, UNSPECIFIED Status: Acute Current Visit: Yes (2) Hypotension SNOMED Code(s): 12219672 ICD Code: I95.9 - HYPOTENSION, UNSPECIFIED Status: Acute Current Visit: Yes (3) Syncope SNOMED Code(s): 169830244 ICD Code: R55 - SYNCOPE AND COLLAPSE Status: Acute Current Visit: Yes (4) Diverticulosis SNOMED Code(s): 95969064 ICD Code: K57.90 - DVRTCLOS OF INTEST, PART UNSP, W/O PERF OR ABSCESS W/O BLEED Status: Acute Current Visit: No Orders Last 24hrs: Active Orders 24 hr Category Date Time Status Admission Status [Patient Status] [ADT] Stat ADT 11/30/19 17:04 Active Transfer Patient (Change bed) [ADT] Routine ADT 12/01/19 10:30 Ordered Cardiac Monitoring [RC] Q8H Care 11/30/19 17:41 Active EKG Documentation Completion [RC] STAT Care 11/30/19 14:52 Active Intake and Output Strict [RC] Q12H Care 11/30/19 17:41 Active Orthostatic Vital Signs [RC] ASDIRECTED Care 11/30/19 17:41 Active Vital Signs [RC] Q4H Care 11/30/19 17:41 Active Regular Diet [DIET] Diet 12/01/19 Breakfast Active CULTURE BLOOD [BC] Stat Lab 11/30/19 15:10 Received CULTURE BLOOD [BC] Stat Lab 11/30/19 15:22 Received Acetaminophen [Tylenol] Med 11/30/19 17:44 Active 650 mg PO Q4H PRN Ciprofloxacin in D5W [Cipro in D5W 400 MG/200 ML] 400 Med 12/01/19 11:00 Active mg Premix Bag 1 bag IV Q12H Enoxaparin [Lovenox] Med 12/01/19 14:15 Ordered 40 mg SUBCUT Q24H Ondansetron [Zofran] Med 11/30/19 17:44 Active 4 mg IVPUSH Q4H PRN Sodium Chloride 0.9% [Normal Saline] 1,000 ml Med 11/30/19 17:00 Active IV ASDIRECTED metroNIDAZOLE/Normal Saline [Flagyl 500 MG in NS 100 ML Med 12/01/19 02:00 Active ] 500 mg Premix Bag 1 bag IV QID Blood Culture x2 Reflex Set [OM.PC] Stat Oth 11/30/19 14:52 Ordered Resuscitation Status Stat Resus Stat 11/30/19 17:41 Ordered Medication Orders Acetaminophen (Tylenol) 650 mg PO Q4H PRN PRN Reason: Pain/Fever Last Admin: 12/01/19 12:04 Dose: 650 mg Admin: 12/01/19 05:48 Dose: 650 mg Admin: 11/30/19 20:48 Dose: 650 mg Enoxaparin Sodium (Lovenox) 40 mg SUBCUT Q24H [facility] Sodium Chloride (Normal Saline) 1,000 mls @ 150 mls/hr IV ASDIRECTED LEONEL Last Admin: 12/01/19 00:57 Dose: 150 mls/hr Infusion: 12/01/19 00:57 Dose: 150 mls/hr Admin: 11/30/19 19:29 Dose: 150 mls/hr Infusion: 11/30/19 19:29 Dose: 150 mls/hr Admin: 11/30/19 16:54 Dose: 150 mls/hr Metronidazole 500 mg/ Premix 100 mls @ 100 mls/hr IV QID [facility] Last Admin: 12/01/19 12:22 Dose: 100 mls/hr Infusion: 12/01/19 06:47 Dose: 100 mls/hr Admin: 12/01/19 05:47 Dose: 100 mls/hr Infusion: 12/01/19 02:59 Dose: 100 mls/hr Admin: 12/01/19 01:59 Dose: 100 mls/hr Ciprofloxacin/Dextrose 400 mg/ (Premix) 200 mls @ 200 mls/hr IV Q12H [facility] Last Admin: 12/01/19 10:53 Dose: 200 mls/hr Ondansetron HCl (Zofran) 4 mg IVPUSH Q4H PRN PRN Reason: Nausea/Vomiting Assessment/Plan Comment:: I performed a history and physical exam of the patient and discussed management with resident. I have reviewed the residents note and agree with documented findings and plan unless otherwise specified in my note.
[2019-11-30] MEDS ORDERED: Ondansetron 4 MG/2 ML SDV IVPUSH PRN (17:44)
[2019-11-30 18:31] VITALS: PULSE 70
[2019-11-30] MEDS ORDERED: Iopamidol 755 MG/ML 500 ML Multipack Bottle IVPUSH ONE (20:33)
[2019-11-30] MEDS: Acetaminophen 325 MG Tab PO PRN (20:48)
--- NOTE | 2019-11-30 20:57 | CT ---
CT abdomen and pelvis Technique: Multiple axial sections were obtained from above the dome of the diaphragm inferiorly through the pubic symphysis. Intravenous contrast was utilized. No oral contrast has been given. Comparison: No prior abdominal imaging. Findings: Small amount of ascites is noted around the liver and around the spleen. Cyst is noted within the left kidney measuring 4.1 cm. No ureteral dilatation or ureteral stone is seen. Right kidney appears within normal limits. Adrenal glands show no nodule. Pancreas appears normal. There is inflammatory type change within the mesentery around small bowel loops. There is some questionable bowel wall thickening within small bowel loops raising the possibility of enteritis. Diverticuli are seen within the descending and sigmoid colon with no surrounding inflammatory change seen to indicate diverticulitis. Appendix is felt to be visualized and is normal. No pelvic mass or adenopathy is seen. Bone window settings shows scattered degenerative endplate spurring throughout the spine. Degenerative change is noted within both sacroiliac joints. No acute osseous finding is seen. Impression: 1. Small amount of ascites around the liver and spleen. 2. Inflammatory change around several small bowel loops with possible small bowel wall thickening suggesting enteritis. 3. Diverticuli within the sigmoid and descending colon without findings of diverticulitis. 4. Other nonacute findings as noted above. Diagnostic code #3 This report was dictated in [place] [employer] Time
[2019-11-30] MEDS ORDERED: Ciprofloxacin in D5W 400 MG in Premix Bag 1 BAG IV SCH ×2 (22:00)
[2019-11-30] MEDS ORDERED: Ketorolac 30 MG/ML SDV IVPUSH ONE (23:44)
[2019-12-01] MEDS ORDERED: metroNIDAZOLE/Normal Saline 500 MG in Premix Bag 1 BAG IV SCH ×2
[2019-12-01] MEDS ORDERED: Ciprofloxacin in D5W 400 MG in Premix Bag 1 BAG IV SCH ×2
[2019-12-01] MEDS: Sodium Chloride 0.9% 1,000 ML IV SCH (00:57)
[2019-12-01] MEDS: metroNIDAZOLE/Normal Saline 500 MG in Premix Bag 1 BAG IV SCH ×4 (01:59→17:57)
[2019-12-01] MEDS: Acetaminophen 325 MG Tab PO PRN ×2 (05:48→12:04)
[2019-12-01 10:31] LABS: BLOOD UREA NITROGEN,BUN 13 mg/dL (7.0-18.0); CHLORIDE,CL 108 mmol/L (98-107); GLUCOSE RANDOM 103 mg/dL (74-106); POTASSIUM,K 4.1 mmol/L (3.5-5.1); SODIUM,NA 140 mmol/L (136-148)
[2019-12-01] MEDS: Ciprofloxacin in D5W 400 MG in Premix Bag 1 BAG IV SCH ×4 (10:53→23:02)
[2019-12-01] MEDS ORDERED: Ketorolac 30 MG/ML SDV IM ONE (11:57)
[2019-12-01] MEDS ORDERED: Ketorolac 30 MG/ML SDV IVPUSH ONE ×2 (12:25→19:23)
--- NOTE | 2019-12-01 12:32 | PCM.PN ---
- General Info Date of Service: 12/01/19 Admission Dx/Problem (Free Text): Admission Diagnosis/Problem Admission Diagnosis/Problem Syncope Subjective Update: seen and examined at bedside, no acute distress, abdominal tenderness improved able to tolerate diet, c/o chronic back pain, - Review of Systems General: Reports: Weakness. Denies: Fever, Fatigue, Malaise HEENT: Denies: Dysphasia Pulmonary: Denies: Shortness of Breath, Pleuritic Chest Pain Cardiovascular: Denies: Chest Pain, Palpitations Gastrointestinal: Denies: Abdominal Pain, Constipation, Decreased Appetite, Diarrhea, Vomiting Genitourinary: Denies: Dysuria, Frequency Musculoskeletal: Reports: Back Pain, Leg Pain Skin: Denies: Cyanosis, Jaundice Neurological: Denies: Confusion, Dizziness, Headache - Patient Data Vitals - Most Recent: Last Vital Signs Temp 36.8 C 12/01/19 04:00 Pulse 70 11/30/19 18:00 Resp 12 12/01/19 09:00 BP 114/65 12/01/19 09:00 Pulse Ox 95 12/01/19 09:00 Orthostatic Blood Pressure [ 131/71 Standing] Orthostatic Blood Pressure [ 140/94 Sitting] Orthostatic Blood Pressure [ 132/74 Supine] Weight - Most Recent: 126.8 kg I&O - Last 24 Hours: Intake & Output 11/30/19 12/01/19 12/01/19 22:59 06:59 14:59 Intake Total 5440 Output Total 980 Balance 4460 Lab Results Last 24 Hours: Laboratory Results - last 24 hr 11/30/19 11/30/19 11/30/19 Range/Units 15:03 15:03 15:03 WBC 16.07 H (4.0-11.0) K/uL RBC 5.29 (4.50-5.90) M/uL Hgb 15.7 (13.0-17.0) g/dL Hct 46.7 (38.0-50.0) % MCV 88.3 (80.0-98.0) fL MCH 29.7 (27.0-32.0) pg MCHC 33.6 (31.0-37.0) g/dL RDW Std Deviation 45.0 (28.0-62.0) fl RDW Coeff of Rober 14 (11.0-15.0) % Plt Count 270 (150-400) K/uL MPV 12.50 H (7.40-12.00) fL Neut % (Auto) 77.4 (48.0-80.0) % Lymph % (Auto) 13.3 L (16.0-40.0) % [place] % (Auto) 6.7 (0.0-15.0) % Eos % (Auto) 2.4 (0.0-7.0) % Baso % (Auto) 0.2 (0.0-1.5) % Neut # (Auto) 12.5 H (1.4-5.7) K/uL Lymph # (Auto) 2.1 (0.6-2.4) K/uL [place] # (Auto) 1.1 H (0.0-0.8) K/uL Eos # (Auto) 0.4 (0.0-0.7) K/uL Baso # (Auto) 0.0 (0.0-0.1) K/uL Nucleated RBC % 0.0 /100WBC Nucleated RBCs # 0 K/uL INR 0.98 Lactate (0.20-2.00) mmol/L Sodium 139 (136-148) mmol/L Potassium 4.2 (3.5-5.1) mmol/L Chloride 104 (98-107) mmol/L Carbon Dioxide 24.0 (21.0-32.0) mmol/L BUN 21 H (7.0-18.0) mg/dL Creatinine 1.2 (0.8-1.3) mg/dL Est Cr Clr Drug Dosing 68.26 mL/min Estimated GFR (MDRD) > 60.0 ml/min Glucose 122 H (74-106) mg/dL Calcium 8.6 (8.5-10.1) mg/dL Phosphorus (2.6-4.7) mg/dL Magnesium (1.8-2.4) mg/dL Total Bilirubin 0.7 (0.2-1.0) mg/dL AST 31 (15-37) IU/L ALT 32 (14-63) IU/L Alkaline Phosphatase 92 (46-116) U/L Troponin I < 0.050 (0.000-0.056) ng/mL Total Protein 6.5 (6.4-8.2) g/dL Albumin 3.7 (3.4-5.0) g/dL Globulin 2.8 (2.6-4.0) g/dL Albumin/Globulin Ratio 1.3 (0.9-1.6) Urine Color Urine Appearance Urine pH (5.0-8.0) Ur Specific [place] (1.001-1.035) Urine Protein (NEGATIVE) mg/dL Urine Glucose (UA) (NEGATIVE) mg/dL Urine Ketones (NEGATIVE) mg/dL Urine Occult Blood (NEGATIVE) Urine Nitrite (NEGATIVE) Urine Bilirubin (NEGATIVE) Urine Urobilinogen (<2.0) EU/dL Ur Leukocyte Esterase (NEGATIVE) Urine Opiates Screen (NEGATIVE) Ur Oxycodone Screen (NEGATIVE) Urine Methadone Screen (NEGATIVE) Ur Barbiturates Screen (NEGATIVE) Ur Phencyclidine Scrn (NEGATIVE) Ur Amphetamine Screen (NEGATIVE) U Methamphetamines Scrn (NEGATIVE) U Benzodiazepines Scrn (NEGATIVE) U Cocaine Metab Screen (NEGATIVE) U Marijuana (THC) Screen (NEGATIVE) 11/30/19 11/30/19 11/30/19 Range/Units 15:03 21:00 21:00 WBC (4.0-11.0) K/uL RBC (4.50-5.90) M/uL Hgb (13.0-17.0) g/dL Hct (38.0-50.0) % MCV (80.0-98.0) fL MCH (27.0-32.0) pg MCHC (31.0-37.0) g/dL RDW Std Deviation (28.0-62.0) fl RDW Coeff of Rober (11.0-15.0) % Plt Count (150-400) K/uL MPV (7.40-12.00) fL Neut % (Auto) (48.0-80.0) % Lymph % (Auto) (16.0-40.0) % [place] % (Auto) (0.0-15.0) % Eos % (Auto) (0.0-7.0) % Baso % (Auto) (0.0-1.5) % Neut # (Auto) (1.4-5.7) K/uL Lymph # (Auto) (0.6-2.4) K/uL [place] # (Auto) (0.0-0.8) K/uL Eos # (Auto) (0.0-0.7) K/uL Baso # (Auto) (0.0-0.1) K/uL Nucleated RBC % /100WBC Nucleated RBCs # K/uL INR Lactate 1.6 (0.20-2.00) mmol/L Sodium (136-148) mmol/L Potassium (3.5-5.1) mmol/L Chloride (98-107) mmol/L Carbon Dioxide (21.0-32.0) mmol/L BUN (7.0-18.0) mg/dL Creatinine (0.8-1.3) mg/dL Est Cr Clr Drug Dosing mL/min Estimated GFR (MDRD) ml/min Glucose (74-106) mg/dL Calcium (8.5-10.1) mg/dL Phosphorus (2.6-4.7) mg/dL Magnesium (1.8-2.4) mg/dL Total Bilirubin (0.2-1.0) mg/dL AST (15-37) IU/L ALT (14-63) IU/L Alkaline Phosphatase (46-116) U/L Troponin I (0.000-0.056) ng/mL Total Protein (6.4-8.2) g/dL Albumin (3.4-5.0) g/dL Globulin (2.6-4.0) g/dL Albumin/Globulin Ratio (0.9-1.6) Urine Color YELLOW Urine Appearance CLEAR Urine pH 6.0 (5.0-8.0) Ur Specific [place] 1.010 (1.001-1.035) Urine Protein NEGATIVE (NEGATIVE) mg/dL Urine Glucose (UA) NEGATIVE (NEGATIVE) mg/dL Urine Ketones NEGATIVE (NEGATIVE) mg/dL Urine Occult Blood NEGATIVE (NEGATIVE) Urine Nitrite NEGATIVE (NEGATIVE) Urine Bilirubin NEGATIVE (NEGATIVE) Urine Urobilinogen 0.2 (<2.0) EU/dL Ur Leukocyte Esterase NEGATIVE (NEGATIVE) Urine Opiates Screen POSITIVE (NEGATIVE) Ur Oxycodone Screen POSITIVE (NEGATIVE) Urine Methadone Screen NEGATIVE (NEGATIVE) Ur Barbiturates Screen NEGATIVE (NEGATIVE) Ur Phencyclidine Scrn NEGATIVE (NEGATIVE) Ur Amphetamine Screen NEGATIVE (NEGATIVE) U Methamphetamines Scrn NEGATIVE (NEGATIVE) U Benzodiazepines Scrn NEGATIVE (NEGATIVE) U Cocaine Metab Screen NEGATIVE (NEGATIVE) U Marijuana (THC) Screen POSITIVE (NEGATIVE) 11/30/19 12/01/19 12/01/19 Range/Units 21:05 10:03 10:03 WBC 7.67 (4.0-11.0) K/uL RBC 4.21 L (4.50-5.90) M/uL Hgb 12.6 L (13.0-17.0) g/dL Hct 37.6 L (38.0-50.0) % MCV 89.3 (80.0-98.0) fL MCH 29.9 (27.0-32.0) pg MCHC 33.5 (31.0-37.0) g/dL RDW Std Deviation 45.9 (28.0-62.0) fl RDW Coeff of Rober 14 (11.0-15.0) % Plt Count 204 (150-400) K/uL MPV 11.50 (7.40-12.00) fL Neut % (Auto) 71.3 (48.0-80.0) % Lymph % (Auto) 16.2 (16.0-40.0) % [place] % (Auto) 6.1 (0.0-15.0) % Eos % (Auto) 6.3 (0.0-7.0) % Baso % (Auto) 0.1 (0.0-1.5) % Neut # (Auto) 5.5 (1.4-5.7) K/uL Lymph # (Auto) 1.2 (0.6-2.4) K/uL [place] # (Auto) 0.5 (0.0-0.8) K/uL Eos # (Auto) 0.5 (0.0-0.7) K/uL Baso # (Auto) 0.0 (0.0-0.1) K/uL Nucleated RBC % 0.0 /100WBC Nucleated RBCs # 0 K/uL INR Lactate (0.20-2.00) mmol/L Sodium 140 (136-148) mmol/L Potassium 4.1 (3.5-5.1) mmol/L Chloride 108 H (98-107) mmol/L Carbon Dioxide 25.0 (21.0-32.0) mmol/L BUN 13 (7.0-18.0) mg/dL Creatinine 0.7 L (0.8-1.3) mg/dL Est Cr Clr Drug Dosing 117.02 mL/min Estimated GFR (MDRD) > 60.0 ml/min Glucose 103 (74-106) mg/dL Calcium 7.9 L (8.5-10.1) mg/dL Phosphorus 3.5 (2.6-4.7) mg/dL Magnesium 2.0 (1.8-2.4) mg/dL Total Bilirubin (0.2-1.0) mg/dL AST (15-37) IU/L ALT (14-63) IU/L Alkaline Phosphatase (46-116) U/L Troponin I < 0.050 (0.000-0.056) ng/mL Total Protein (6.4-8.2) g/dL Albumin (3.4-5.0) g/dL Globulin (2.6-4.0) g/dL Albumin/Globulin Ratio (0.9-1.6) Urine Color Urine Appearance Urine pH (5.0-8.0) Ur Specific [place] (1.001-1.035) Urine Protein (NEGATIVE) mg/dL Urine Glucose (UA) (NEGATIVE) mg/dL Urine Ketones (NEGATIVE) mg/dL Urine Occult Blood (NEGATIVE) Urine Nitrite (NEGATIVE) Urine Bilirubin (NEGATIVE) Urine Urobilinogen (<2.0) EU/dL Ur Leukocyte Esterase (NEGATIVE) Urine Opiates Screen (NEGATIVE) Ur Oxycodone Screen (NEGATIVE) Urine Methadone Screen (NEGATIVE) Ur Barbiturates Screen (NEGATIVE) Ur Phencyclidine Scrn (NEGATIVE) Ur Amphetamine Screen (NEGATIVE) U Methamphetamines Scrn (NEGATIVE) U Benzodiazepines Scrn (NEGATIVE) U Cocaine Metab Screen (NEGATIVE) U Marijuana (THC) Screen (NEGATIVE) Jamin Results Last 24 Hours: Microbiology 11/30/19 15:12 Influenza Type A Antigen Screen - Final Nasopharyngeal Swab NEGATIVE INFLUENZA A VIRUS AG REFERENCE RANGE: NEGATIVE Influenza Type B Antigen Screen - Final NEGATIVE INFLUENZA B VIRUS AG REFERENCE RANGE: NEGATIVE Med Orders - Current: Current Medications Acetaminophen (Tylenol) 650 mg PO Q4H PRN PRN Reason: Pain/Fever Last Admin: 12/01/19 12:04 Dose: 650 mg Sodium Chloride (Normal Saline) 1,000 mls @ 150 mls/hr IV ASDIRECTED [facility]ONEL Last Admin: 12/01/19 00:57 Dose: 150 mls/hr Metronidazole 500 mg/ Premix 100 mls @ 100 mls/hr IV QID [facility] Last Admin: 12/01/19 12:22 Dose: 100 mls/hr Ciprofloxacin/Dextrose 400 mg/ (Premix) 200 mls @ 200 mls/hr IV Q12H [facility] Last Admin: 12/01/19 10:53 Dose: 200 mls/hr Ondansetron HCl (Zofran) 4 mg IVPUSH Q4H PRN PRN Reason: Nausea/Vomiting Discontinued Medications Sodium Chloride (Normal Saline) 1,000 mls @ 999 mls/hr IV STAT ONE Stop: 11/30/19 15:51 Last Admin: 11/30/19 15:15 Dose: 999 mls/hr Sodium Chloride (Normal Saline) 1,000 mls @ 999 mls/hr IV .Bolus ONE Stop: 11/30/19 16:54 Last Admin: 11/30/19 15:55 Dose: 999 mls/hr Sodium Chloride (Normal Saline) 1,000 mls @ 999 mls/hr IV STAT ONE Stop: 11/30/19 18:44 Last Admin: 11/30/19 18:45 Dose: 999 mls/hr Ciprofloxacin/Dextrose 400 mg/ (Premix) 200 mls @ 200 mls/hr IV Q12H [facility] Last Admin: 11/30/19 23:40 Dose: Not Given Metronidazole 500 mg/ Premix 100 mls @ 100 mls/hr IV QID [facility] Ciprofloxacin/Dextrose 400 mg/ (Premix) 200 mls @ 200 mls/hr IV Q12H [facility] Last Admin: 11/30/19 23:46 Dose: 200 mls/hr Iopamidol (Isovue Multipack-370 (76%)) 100 ml IVPUSH ONETIME ONE Stop: 11/30/19 20:34 Last Admin: 11/30/19 20:34 Dose: 100 ml Ketorolac Tromethamine (Toradol) 30 mg IVPUSH ONETIME ONE Stop: 11/30/19 23:45 Last Admin: 11/30/19 23:54 Dose: 30 mg Ketorolac Tromethamine (Toradol) 30 mg IVPUSH ONETIME ONE Stop: 12/01/19 12:26 - Exam Quality Assessment: Supplemental Oxygen General: Alert, Oriented HEENT: Mucous Membr. Moist/[place] Neck: Supple, Trachea Midline Lungs: Clear to Auscultation, Normal Respiratory Effort Cardiovascular: Regular Rate, Regular Rhythm GI/Abdominal Exam: Normal Bowel Sounds, Soft, No Distention, Tender Sepsis Event Note - Evaluation Sepsis Screening Result: No Definite Risk - Focused Exam Vital Signs: Vital Signs Temp Resp BP Pulse Ox 12/01/19 09:00 12 114/65 95 12/01/19 08:00 12 102/51 L 98 12/01/19 07:00 12 118/72 96 12/01/19 04:00 36.8 C 14 122/65 93 L 12/01/19 03:00 13 119/71 97 12/01/19 02:00 16 118/58 L 92 L 12/01/19 01:00 14 108/57 L 94 L Date Exam was Performed: 12/01/19 Time Exam was Performed: 14:03 - Problem List & Annotations (1) Enteritis SNOMED Code(s): 83200446 Code(s): K52.9 - NONINFECTIVE GASTROENTERITIS AND COLITIS, UNSPECIFIED Status: Acute Current Visit: Yes (2) Hypotension SNOMED Code(s): 12844751 Code(s): I95.9 - HYPOTENSION, UNSPECIFIED Status: Acute Current Visit: Yes (3) Syncope SNOMED Code(s): 904324632 Code(s): R55 - SYNCOPE AND COLLAPSE Status: Acute Current Visit: Yes (4) Diverticulosis SNOMED Code(s): 03333308 Code(s): K57.90 - DVRTCLOS OF INTEST, PART UNSP, W/O PERF OR ABSCESS W/O BLEED Status: Acute Current Visit: No - Problem List Review Problem List Initiated/Reviewed/Updated: Yes - My Orders Last 24 Hours: My Active Orders 12/01/19 02:00 metroNIDAZOLE/Normal Saline [Flagyl 500 MG in NS 100 ML] 500 mg Premix Bag 1 bag IV QID 12/01/19 10:30 Transfer Patient (Change bed) [ADT] Routine 12/01/19 11:00 Ciprofloxacin in D5W [Cipro in D5W 400 MG/200 ML] 400 mg Premix Bag 1 bag IV Q12H - Plan Plan:: 64 y/o M admitted for syncope Syncope likely secondary to hypotension/dehydration- will monitor on telemetry, ACS ruled out, UDS negative, continue IVF CT abdomen showed enteritis, WBC count resolved, will cont IV antibiotics till cultures are back DVT ppx with Lovenox cont to monitor closely
[2019-12-01] MEDS ORDERED: Enoxaparin 40 MG/0.4 ML Syringe SUBCUT SCH (14:15)
[2019-12-02] MEDS: metroNIDAZOLE/Normal Saline 500 MG in Premix Bag 1 BAG IV SCH ×3 (00:10→11:41)
[2019-12-02 08:18] VITALS: BP 147/78
[2019-12-02] MEDS: Acetaminophen 325 MG Tab PO PRN (09:23)
[2019-12-02] MEDS: Ciprofloxacin in D5W 400 MG in Premix Bag 1 BAG IV SCH ×2 (10:34)
--- NOTE | 2019-12-02 11:17 | PCM.DCSUM1 ---
Discharge Summary - Hospital Course HPI Initial Comments: The patient is a 64 year old male with past medical hx of HTN, hyperlipidemia, TIA, neuropathy, and chronic back pain. The patient was at his son's school discussing an issue with the principal and secretary of police when he felt dizzy and then passed out. States son eased him down to ground, no head trauma or injury to any other part of the body. Thinks he was out for a few seconds. Denies fever/chills, sinus congestion, sore throat chest pain, shortness of breath, cough, nausea/vomiting, constipation/diarrhea, burning with urination. Took his amlodipine this morning and thinks he may have taken a double dose of his pain medication, Tylenol #3. Has not eaten anything all day, was fasting for PCP lab work. Since doing blood work this AM, has had 2 bottles of water and 2 diet cokes. In the ER, leukocytosis of 16, no anemia, lactate wnl, CMP wnl, trop negative, influenza negative. Blood cultures and UA pending. CXR negative for acute process. CT head negative for acute process. EKG showed NSR without ST changes with HR 80s. Upon arrival BP 81/55, received 2 L bolus. Due to concerns of hypotension patient was admitted to ICU. Upon physical exam, patient had some tenderness in his right lower abdomen. CT scan abdomen showed findings suggestive of enteritis. ACS was ruled out. Patient was started on IV antibiotics. Next day patients leucocytosis resolved, patient was downgraded to general floors, patient was able to tolerate diet, his BP improved and he was medically stable for dc to home with PO antibiotics and fu with PCP. Diagnosis: Stroke: No - Discharge Data Discharge Date: 12/02/19 Discharge Disposition: Home, Self-Care 01 Condition: Stable - Referral to Home Health Primary Care Physician: Pj Lorenzo MD - Discharge Diagnosis/Problem(s) (1) Enteritis SNOMED Code(s): 07819559 ICD Code: K52.9 - NONINFECTIVE GASTROENTERITIS AND COLITIS, UNSPECIFIED Status: Acute Current Visit: Yes (2) Hypotension SNOMED Code(s): 82716828 ICD Code: I95.9 - HYPOTENSION, UNSPECIFIED Status: Acute Current Visit: Yes (3) Syncope SNOMED Code(s): 742928359 ICD Code: R55 - SYNCOPE AND COLLAPSE Status: Acute Current Visit: Yes (4) Diverticulosis SNOMED Code(s): 56621436 ICD Code: K57.90 - DVRTCLOS OF INTEST, PART UNSP, W/O PERF OR ABSCESS W/O BLEED Status: Acute Current Visit: No - Discharge Plan *PRESCRIPTION DRUG MONITORING PROGRAM REVIEWED*: No *COPY OF PRESCRIPTION DRUG MONITORING REPORT IN PATIENT KRISTYN: No Prescriptions/Med Rec: Ciprofloxacin [Ciprofloxacin HCl] 500 mg PO Q12HR 3 Days #6 tab metroNIDAZOLE [Flagyl] 500 mg PO Q8H 3 Days #9 tablet Home Medications: Home Meds Acetaminophen with Codeine [Tylenol with Codeine #4 Tablet] 1 each PO .Q4-6H PRN 11/30/19 [History] Baclofen 1 - 2 tab PO TID PRN 11/30/19 [History] Clopidogrel [Plavix] 75 mg PO DAILY 11/30/19 [History] Cyanocobalamin/FA/Pyridoxine [Folbic] 1 tab PO BID 11/30/19 [History] Cyclobenzaprine [Flexeril] 10 mg PO Q8HR PRN 11/30/19 [History] DULoxetine [Cymbalta] 120 mg PO DAILY 11/30/19 [History] Diclofenac Sodium [Voltaren 1% Gel] 1 dose TOP DAILY 11/30/19 [History] Diclofenac Sodium [Voltaren] 75 mg PO BIDPC 11/30/19 [History] Gabapentin [Neurontin] 300 mg PO BID 11/30/19 [History] Gabapentin [Neurontin] 600 mg PO BID 11/30/19 [History] Ketamine Hcl [Ketamine Nasal [place] Compound] 1 spray NASBOTH TID PRN 11/30/19 [ History] Lidocaine 0.5% [Xylocaine-MPF 0.5%] 1 dose TOP TID PRN 11/30/19 [History] Lisinopril [Zestril] 20 mg PO DAILY 11/30/19 [History] Sildenafil [Revatio] 60 - 100 mg PO DAILY 11/30/19 [History] amLODIPine [Norvasc] 10 mg PO DAILY 11/30/19 [History] atorvaSTATin [Lipitor] 10 mg PO BEDTIME 11/30/19 [History] Ciprofloxacin [Ciprofloxacin HCl] 500 mg PO Q12HR 3 Days #6 tab 12/02/19 [Rx] metroNIDAZOLE [Flagyl] 500 mg PO Q8H 3 Days #9 tablet 12/02/19 [Rx] Patient Handouts: Diverticulosis, Ciprofloxacin tablets, Syncope, Metronidazole tablets or capsules Forms: ED Department Discharge Referrals: Pj Lorenzo MD [Primary Care Provider] - (Follow-up in 1 week.Please call the clinic tomorrow.) - Discharge Summary/Plan Comment DC Time >30 min.: No - Patient Data Vitals - Most Recent: Last Vital Signs Temp 36.9 C 12/02/19 08:00 Pulse 70 11/30/19 18:00 Resp 19 12/02/19 08:00 BP 147/78 H 12/02/19 08:00 Pulse Ox 95 12/02/19 08:00 Orthostatic Blood Pressure [ 131/71 Standing] Orthostatic Blood Pressure [ 140/94 Sitting] Orthostatic Blood Pressure [ 132/74 Supine] Weight - Most Recent: 122.9 kg I&O - Last 24 hours: Intake & Output 12/01/19 12/02/19 12/02/19 22:59 06:59 14:59 Intake Total 1300 100 Output Total 1850 Balance -550 100 MEHDI Results - Last 24 hrs: Microbiology 11/30/19 15:22 Aerobic Blood Culture - Preliminary Blood - Venous - Lab Draw NO GROWTH AFTER 1 DAY Anaerobic Blood Culture - Preliminary NO GROWTH AFTER 1 DAY 11/30/19 15:10 Aerobic Blood Culture - Preliminary Blood - Venous NO GROWTH AFTER 1 DAY Anaerobic Blood Culture - Preliminary NO GROWTH AFTER 1 DAY Med Orders - Current: Current Medications Acetaminophen (Tylenol) 650 mg PO Q4H PRN PRN Reason: Pain/Fever Last Admin: 12/02/19 09:23 Dose: 650 mg Enoxaparin Sodium (Lovenox) 40 mg SUBCUT Q24H [facility] Last Admin: 12/01/19 14:21 Dose: 40 mg Sodium Chloride (Normal Saline) 1,000 mls @ 150 mls/hr IV ASDIRECTED [facility] Last Admin: 12/01/19 00:57 Dose: 150 mls/hr Metronidazole 500 mg/ Premix 100 mls @ 100 mls/hr IV QID [facility] [place] Last Admin: 12/02/19 06:10 Dose: 100 mls/hr Ciprofloxacin/Dextrose 400 mg/ (Premix) 200 mls @ 200 mls/hr IV Q12H [facility] [place] Last Admin: 12/02/19 10:34 Dose: 200 mls/hr Ondansetron HCl (Zofran) 4 mg IVPUSH Q4H PRN PRN Reason: Nausea/Vomiting Discontinued Medications Sodium Chloride (Normal Saline) 1,000 mls @ 999 mls/hr IV STAT ONE Stop: 11/30/19 15:51 Last Admin: 11/30/19 15:15 Dose: 999 mls/hr Sodium Chloride (Normal Saline) 1,000 mls @ 999 mls/hr IV .Bolus ONE Stop: 11/30/19 16:54 Last Admin: 11/30/19 15:55 Dose: 999 mls/hr Sodium Chloride (Normal Saline) 1,000 mls @ 999 mls/hr IV STAT ONE Stop: 11/30/19 18:44 Last Admin: 11/30/19 18:45 Dose: 999 mls/hr Ciprofloxacin/Dextrose 400 mg/ (Premix) 200 mls @ 200 mls/hr IV Q12H [facility] [place] Last Admin: 11/30/19 23:40 Dose: Not Given Metronidazole 500 mg/ Premix 100 mls @ 100 mls/hr IV QID [facility] Ciprofloxacin/Dextrose 400 mg/ (Premix) 200 mls @ 200 mls/hr IV Q12H [facility] [place] Last Admin: 11/30/19 23:46 Dose: 200 mls/hr Iopamidol (Isovue Multipack-370 (76%)) 100 ml IVPUSH ONETIME ONE Stop: 11/30/19 20:34 Last Admin: 11/30/19 20:34 Dose: 100 ml Ketorolac Tromethamine (Toradol) 30 mg IVPUSH ONETIME ONE Stop: 11/30/19 23:45 Last Admin: 11/30/19 23:54 Dose: 30 mg Ketorolac Tromethamine (Toradol) 30 mg IVPUSH ONETIME ONE Stop: 12/01/19 12:26 Last Admin: 12/01/19 12:41 Dose: 30 mg Ketorolac Tromethamine (Toradol) 30 mg IVPUSH ONETIME ONE Stop: 12/01/19 19:24 Last Admin: 12/01/19 19:38 Dose: 30 mg
== END 2019-12-02 13:00 | disposition home or self-care (01) ==
LOC: MW.ED 14:45 → INTOOBSV 17:04 → MW.ICU 17:04 → OBSVTOIN 17:04
PROVIDERS: ADMIT Student in an Organized Health Care Education/Training Program; ATTEND Student in an Organized Health Care Education/Training Program
DX: R55 Syncope and collapse (principal); K52.9 Noninfective gastroenteritis and colitis, unspecified; I95.9 Hypotension, unspecified; K57.90 Diverticulosis of intestine, part unspecified, without perforation or abscess without bleeding; I10 Essential (primary) hypertension; E78.5 Hyperlipidemia, unspecified; G89.29 Other chronic pain; M54.9 Dorsalgia, unspecified; E78.00 Pure hypercholesterolemia, unspecified; G47.30 Sleep apnea, unspecified; K21.9 Gastro-esophageal reflux disease without esophagitis; M19.90 Unspecified osteoarthritis, unspecified site; F32.9 Major depressive disorder, single episode, unspecified; F41.9 Anxiety disorder, unspecified; E66.9 Obesity, unspecified; Z79.899 Other long term (current) drug therapy; Z79.02 Long term (current) use of antithrombotics/antiplatelets; Z68.36 Body mass index [BMI] 36.0-36.9, adult
CPT/HCPCS: 36415; 70450; 71045; 74177; 80048; 80053; 80305; 81003; 83605; 83735; 84100; 84484; 85025; 85610; 87040; 87804; 93005; A9270; J0744; J1650; J1885; J3490; J7030; Q9967; 96360; 96361; 96365; 96366; 96367; 96372; 96375; 96376; 99284; 99285-25; G0378

== ENCOUNTER 2023-09-20 12:43 | Inpatient (IN) | payer MEDICARE, OTHER ==
[2023-09-20] MEDS ORDERED: Sodium Chloride 0.9% 10 ML Syringe FLUSH PRN (13:34)
[2023-09-20] MEDS ORDERED: Sodium Chloride 0.9% 2.5 ML Syringe FLUSH PRN (13:34)
[2023-09-20] MEDS ORDERED: traMADol 50 MG Tab PO ONE (13:42)
[2023-09-20 14:00] LABS: BASOPHILS ABSOLUTE AUTO 0.03 K/uL (0.00-0.20); BASOPHILS PERCENT AUTO 0.2 % (0.0-1.0); EOSINOPHILS ABSOLUTE AUTO 0.05 K/uL (0.00-0.45); EOSINOPHILS PERCENT AUTO 0.4 % (0.0-6.0); HEMATOCRIT 38.3 % (42.0-52.0); HEMOGLOBIN 13.3 g/dL (14.0-18.0); IMMATURE GRAN ABSOLUTE AUTO 0.07 K/uL (0.00-0.05); IMMATURE GRAN PERCENT AUTO 0.5 % (0.0-0.4); LYMPHOCYTES ABSOLUTE AUTO 1.27 K/uL (1.00-4.80); LYMPHOCYTES PERCENT AUTO 9.2 % (24.0-44.0); MEAN CORPUSCULAR HEMOGLOBIN 30.4 pg (28.0-32.0); MEAN CORPUSCULAR HGB CONC 34.7 g/dL (32.0-36.0); MEAN CORPUSCULAR VOLUME 87.4 fL (83.0-99.0); MEAN PLATELET VOLUME 11.1 fL (9.4-12.4); MONOCYTES ABSOLUTE AUTO 1.07 K/uL (0.00-0.80); MONOCYTES PERCENT AUTO 7.7 % (0.0-8.0); NEUTROPHILS ABSOLUTE AUTO 11.35 K/uL (1.80-7.70); PLATELET COUNT,PLT 232 K/uL (150-400); RED BLOOD CELL COUNT 4.38 M/uL (4.52-5.90); WHITE BLOOD CELL COUNT,WBC 13.84 K/uL (3.9-11.3)
[2023-09-20] MEDS ORDERED: Piperacillin/Tazobactam 3.375 GM in Sodium Chloride 0.9% 100 ML IV ONE (14:21)
[2023-09-20] MEDS ORDERED: VANCOmycin 2 GM/400 ML 2 GM in Premix Bag 1 BAG IV ONE (14:30)
[2023-09-20 14:44] LABS: LACTIC ACID 1.5 mmol/L (0.4-2.0)
[2023-09-20 15:24] LABS: A/G RATIO 0.7 (0.9-1.6); ALBUMIN 3.2 g/dL (3.4-5.0); BILIRUBIN TOTAL 0.8 mg/dL (0.2-1.0); CALCIUM 8.9 mg/dL (8.5-10.1); CARBON DIOXIDE,CO2 25.8 mmol/L (21.0-32.0); CREATININE 0.7 mg/dL (0.8-1.3); EST CRCL DRUG DOSING (CG) 112.4 mL/min; POTASSIUM,K 3.1 mmol/L (3.5-5.1); PROTEIN TOTAL,TP 7.6 g/dL (6.4-8.2)
[2023-09-20] MEDS ORDERED: Iopamidol 755 MG/ML 500 ML Multipack Bottle IVPUSH STA (15:51)
[2023-09-20] MEDS ORDERED: Lidocaine 1% PF 2 ML SDV INJECT ONE (17:02)
[2023-09-20] MEDS ORDERED: HYDROmorphone 1 MG/ML Syringe IVPUSH ONE (17:02)
[2023-09-20] MEDS ORDERED: Ondansetron 4 MG/2 ML SDV IVPUSH ONE (17:02)
[2023-09-20] MEDS ORDERED: Ondansetron 4 MG/2 ML SDV IVPUSH PRN (17:40)
[2023-09-20] MEDS ORDERED: Baclofen 10 MG Tab PO PRN (17:43)
[2023-09-20] MEDS ORDERED: Piperacillin/Tazobactam 3.375 GM in Sodium Chloride 0.9% 100 ML IV SCH (17:45)
[2023-09-20] MEDS ORDERED: Non-Formulary Medication 1 Each (Zolpidem 10 MG Tablet) PO PRN (17:45)
[2023-09-20] MEDS: atorvaSTATin 20 MG Tab PO SCH (20:57)
[2023-09-20] MEDS: Gabapentin 300 MG Cap PO SCH (20:57)
[2023-09-20] MEDS: Piperacillin/Tazobactam 3.375 GM in Sodium Chloride 0.9% 100 ML IV SCH (20:58)
[2023-09-20] MEDS ORDERED: Gabapentin 300 MG Cap PO SCH (21:00)
[2023-09-20] MEDS: Enoxaparin 40 MG/0.4 ML Syringe SUBCUT SCH (21:32)
[2023-09-20] MEDS: oxyCODONE 5 MG Tab PO PRN (22:14)
[2023-09-21] MEDS: Piperacillin/Tazobactam 3.375 GM in Sodium Chloride 0.9% 100 ML IV SCH ×4 (02:35→20:11)
[2023-09-21] MEDS: Acetaminophen 325 MG Tab PO PRN ×3 (02:41→20:12)
[2023-09-21] MEDS: VANCOmycin 1.5 GM/300 ML 1.5 GM in Premix Bag 1 BAG IV SCH ×2 (04:12→15:44)
[2023-09-21 06:47] LABS: BASOPHILS ABSOLUTE AUTO 0.04 K/uL (0.00-0.20); BASOPHILS PERCENT AUTO 0.3 % (0.0-1.0); EOSINOPHILS ABSOLUTE AUTO 0.25 K/uL (0.00-0.45); HEMATOCRIT 35.8 % (42.0-52.0); HEMOGLOBIN 12.2 g/dL (14.0-18.0); IMMATURE GRAN ABSOLUTE AUTO 0.06 K/uL (0.00-0.05); IMMATURE GRAN PERCENT AUTO 0.5 % (0.0-0.4); LYMPHOCYTES ABSOLUTE AUTO 2.12 K/uL (1.00-4.80); LYMPHOCYTES PERCENT AUTO 17.1 % (24.0-44.0); MEAN CORPUSCULAR HEMOGLOBIN 29.8 pg (28.0-32.0); MEAN CORPUSCULAR HGB CONC 34.1 g/dL (32.0-36.0); MEAN CORPUSCULAR VOLUME 87.5 fL (83.0-99.0); MEAN PLATELET VOLUME 10.5 fL (9.4-12.4); MONOCYTES ABSOLUTE AUTO 1.16 K/uL (0.00-0.80); MONOCYTES PERCENT AUTO 9.4 % (0.0-8.0); NEUTROPHILS ABSOLUTE AUTO 8.77 K/uL (1.80-7.70); NEUTROPHILS PERCENT AUTO 70.7 % (41.0-71.0); PLATELET COUNT,PLT 240 K/uL (150-400); RED BLOOD CELL COUNT 4.09 M/uL (4.52-5.90)
[2023-09-21 07:09] LABS: A/G RATIO 0.8 (0.9-1.6); ALBUMIN 3.1 g/dL (3.4-5.0); BILIRUBIN TOTAL 0.7 mg/dL (0.2-1.0); CALCIUM 8.8 mg/dL (8.5-10.1); CARBON DIOXIDE,CO2 24.3 mmol/L (21.0-32.0); CREATININE 0.8 mg/dL (0.8-1.3); EST CRCL DRUG DOSING (CG) 98.35 mL/min; POTASSIUM,K 2.6 mmol/L (3.5-5.1); PROTEIN TOTAL,TP 6.8 g/dL (6.4-8.2)
[2023-09-21] MEDS ORDERED: Potassium Chloride 20 MEQ Tab.ER PO ONE (07:25)
[2023-09-21] MEDS: Clopidogrel 75 MG Tab PO SCH (09:02)
[2023-09-21] MEDS: amLODIPine 5 MG Tab PO SCH (09:02)
[2023-09-21] MEDS: Lisinopril 10 MG Tab PO SCH (09:02)
[2023-09-21] MEDS: Gabapentin 300 MG Cap PO SCH ×2 (09:03→20:12)
[2023-09-21] MEDS: NS with KCl 40mEq 1,000 ML IV SCH ×3 (11:11→23:31)
[2023-09-21] MEDS: oxyCODONE 5 MG Tab PO PRN ×2 (16:09→20:13)
[2023-09-21] MEDS: Enoxaparin 40 MG/0.4 ML Syringe SUBCUT SCH (17:42)
[2023-09-21] MEDS: atorvaSTATin 20 MG Tab PO SCH (20:14)
[2023-09-22] MEDS: Piperacillin/Tazobactam 3.375 GM in Sodium Chloride 0.9% 100 ML IV SCH ×3 (02:25→14:59)
[2023-09-22] MEDS: Acetaminophen 325 MG Tab PO PRN (02:34)
[2023-09-22] MEDS: oxyCODONE 5 MG Tab PO PRN ×3 (02:34→13:33)
[2023-09-22] MEDS: VANCOmycin 1.5 GM/300 ML 1.5 GM in Premix Bag 1 BAG IV SCH ×2 (03:02→14:59)
[2023-09-22] MEDS: NS with KCl 40mEq 1,000 ML IV SCH ×2 (06:03→10:53)
[2023-09-22 06:04] LABS: BASOPHILS ABSOLUTE AUTO 0.05 K/uL (0.00-0.20); BASOPHILS PERCENT AUTO 0.6 % (0.0-1.0); EOSINOPHILS ABSOLUTE AUTO 0.27 K/uL (0.00-0.45); HEMATOCRIT 31.7 % (42.0-52.0); HEMOGLOBIN 10.6 g/dL (14.0-18.0); IMMATURE GRAN ABSOLUTE AUTO 0.05 K/uL (0.00-0.05); IMMATURE GRAN PERCENT AUTO 0.6 % (0.0-0.4); LYMPHOCYTES ABSOLUTE AUTO 2.01 K/uL (1.00-4.80); LYMPHOCYTES PERCENT AUTO 22.6 % (24.0-44.0); MEAN CORPUSCULAR HGB CONC 33.4 g/dL (32.0-36.0); MEAN CORPUSCULAR VOLUME 89.8 fL (83.0-99.0); MEAN PLATELET VOLUME 10.7 fL (9.4-12.4); MONOCYTES ABSOLUTE AUTO 0.81 K/uL (0.00-0.80); MONOCYTES PERCENT AUTO 9.1 % (0.0-8.0); NEUTROPHILS ABSOLUTE AUTO 5.72 K/uL (1.80-7.70); NEUTROPHILS PERCENT AUTO 64.1 % (41.0-71.0); PLATELET COUNT,PLT 203 K/uL (150-400); RED BLOOD CELL COUNT 3.53 M/uL (4.52-5.90); WHITE BLOOD CELL COUNT,WBC 8.91 K/uL (3.9-11.3)
[2023-09-22 06:29] LABS: A/G RATIO 0.8 (0.9-1.6); ALBUMIN 2.6 g/dL (3.4-5.0); BILIRUBIN TOTAL 0.3 mg/dL (0.2-1.0); CREATININE 0.8 mg/dL (0.8-1.3); EST CRCL DRUG DOSING (CG) 98.35 mL/min; POTASSIUM,K 3.4 mmol/L (3.5-5.1); PROTEIN TOTAL,TP 5.8 g/dL (6.4-8.2)
[2023-09-22] MEDS ORDERED: Potassium Chloride 20 MEQ Tab.ER PO ONE (07:27)
[2023-09-22] MEDS: Gabapentin 300 MG Cap PO SCH (08:49)
[2023-09-22] MEDS: amLODIPine 5 MG Tab PO SCH (08:50)
[2023-09-22] MEDS: Clopidogrel 75 MG Tab PO SCH (08:51)
[2023-09-22] MEDS: Lisinopril 10 MG Tab PO SCH (08:51)
[2023-09-22] MEDS: Enoxaparin 40 MG/0.4 ML Syringe SUBCUT SCH ×2 (16:26→16:45)
[2023-09-22] MEDS ORDERED: Ketorolac 30 MG/ML SDV IVPUSH SCH (16:30)
[2023-09-22 18:25] VITALS: BP 136/74; PULSE 74
== END 2023-09-22 18:30 | DRG 603 ==
LOC: MW.ED 12:43 → MW.MS 19:36 → OBSVTOIN 09-21 11:10 → MW.MS 09-21 15:22
PROVIDERS: ADMIT Family Medicine; ATTEND Family Medicine
PROC: 0H9GXZZ Drainage of Left Hand Skin, External Approach (ICD-10-PCS; principal; 2023-09-21)
DX: L03.114 Cellulitis of left upper limb (principal); L03.012 Cellulitis of left finger; L02.512 Cutaneous abscess of left hand; I10 Essential (primary) hypertension; M54.50 Low back pain, unspecified; G89.29 Other chronic pain; M19.90 Unspecified osteoarthritis, unspecified site; E66.9 Obesity, unspecified; W57.XXXA Bitten or stung by nonvenomous insect and other nonvenomous arthropods, initial encounter; E78.00 Pure hypercholesterolemia, unspecified; F41.9 Anxiety disorder, unspecified; F32.A Depression, unspecified; K21.9 Gastro-esophageal reflux disease without esophagitis; G62.9 Polyneuropathy, unspecified; Z68.35 Body mass index [BMI] 35.0-35.9, adult; Z98.890 Other specified postprocedural states; Z90.49 Acquired absence of other specified parts of digestive tract; Z90.89 Acquired absence of other organs; Z86.73 Personal history of transient ischemic attack (TIA), and cerebral infarction without residual deficits; Z79.02 Long term (current) use of antithrombotics/antiplatelets; Z79.899 Other long term (current) drug therapy
CPT/HCPCS: 10061; 36415 ×2; 73140; 73201; 80053 ×2; 80202; 83605; 83735; 85025 ×2; 87040 ×2; 87070; 87075; 87205; 96365; 96366; 96367; 96375; 99284; A9270 ×11; J1170; J1650; J2405; J2543 ×4; J3370 ×2; J3490 ×5; Q9967; 10060; 73200-26-LT; 73200-LT; 87077; 87186; 96372; 96376; 99222; 99231; 99239; G0378; J1885; J3480

== ENCOUNTER 2024-12-29 09:49 | Emergency (ER) | payer MEDICARE, OTHER ==
[2024-12-29] MEDS: Acetaminophen/oxyCODONE 325-10 MG Tab PO ONE (10:23)
[2024-12-29 10:50] LABS: BASOPHILS ABSOLUTE AUTO 0.03 K/uL (0.00-0.20); BASOPHILS PERCENT AUTO 0.3 % (0.0-1.0); EOSINOPHILS ABSOLUTE AUTO 0.28 K/uL (0.00-0.45); EOSINOPHILS PERCENT AUTO 2.9 % (0.0-6.0); HEMATOCRIT 33.3 % (42.0-52.0); HEMOGLOBIN 11.2 g/dL (14.0-18.0); IMMATURE GRAN ABSOLUTE AUTO 0.03 K/uL (0.00-0.05); IMMATURE GRAN PERCENT AUTO 0.3 % (0.0-0.4); LYMPHOCYTES ABSOLUTE AUTO 1.34 K/uL (1.00-4.80); LYMPHOCYTES PERCENT AUTO 13.7 % (24.0-44.0); MEAN CORPUSCULAR HEMOGLOBIN 30.4 pg (28.0-32.0); MEAN CORPUSCULAR HGB CONC 33.6 g/dL (32.0-36.0); MEAN CORPUSCULAR VOLUME 90.2 fL (83.0-99.0); MONOCYTES ABSOLUTE AUTO 0.78 K/uL (0.00-0.80); NEUTROPHILS ABSOLUTE AUTO 7.29 K/uL (1.80-7.70); NEUTROPHILS PERCENT AUTO 74.8 % (41.0-71.0); PLATELET COUNT,PLT 228 K/uL (150-400); RED BLOOD CELL COUNT 3.69 M/uL (4.52-5.90); WHITE BLOOD CELL COUNT,WBC 9.75 K/uL (3.9-11.3)
[2024-12-29 11:13] LABS: A/G RATIO 1.1 (0.9-1.6); ALANINE AMINOTRANSFERASE,ALT 23 IU/L (14-63); ALBUMIN 3.3 g/dL (3.4-5.0); ALKALINE PHOSPHATASE 95 U/L (46-116); ASPARTATE AMNIOTRANSFERASE,AST 20 IU/L (15-37); BILIRUBIN TOTAL 0.5 mg/dL (0.2-1.0); BLOOD UREA NITROGEN,BUN 17 mg/dL (7.0-18.0); CALCIUM 8.4 mg/dL (8.5-10.1); CARBON DIOXIDE,CO2 24.1 mmol/L (21.0-32.0); CHLORIDE,CL 108 mmol/L (98-107); CREATININE 0.8 mg/dL (0.8-1.3); EST CRCL DRUG DOSING (CG) 95.65 mL/min; GLUCOSE RANDOM 102 mg/dL (74-106); POTASSIUM,K 3.5 mmol/L (3.5-5.1); PROTEIN TOTAL,TP 6.2 g/dL (6.4-8.2); SODIUM,NA 142 mmol/L (136-148)
[2024-12-29 11:18] LABS: ESTIMATED GFR 96 mL/min (>60)
[2024-12-29 12:27] VITALS: BP 153/69; PULSE 79
== END 2024-12-29 12:26 | disposition home or self-care (01) ==
LOC: MW.ED 09:49
DX: S20.229A Contusion of unspecified back wall of thorax, initial encounter (principal); I10 Essential (primary) hypertension; E78.00 Pure hypercholesterolemia, unspecified; E66.9 Obesity, unspecified; Z90.49 Acquired absence of other specified parts of digestive tract; Z79.899 Other long term (current) drug therapy; Z79.891 Long term (current) use of opiate analgesic; Z75.8 Other problems related to medical facilities and other health care; Z68.35 Body mass index [BMI] 35.0-35.9, adult; W19.XXXA Unspecified fall, initial encounter
CPT/HCPCS: 36415; 70450; 71045; 72125; 72128; 72131; 80053; 84484; 85025; 93005; 99284; A9270